=== PATIENT | male | born 1935 | race Caucasian/White ===

== ENCOUNTER 2018-08-12 10:36 | Inpatient (IN) ==
--- NOTE | 2018-07-29 13:35 | PAT Medication Instructions ---
Medication Instructions Date of Service July 29, 2018 Home Medications aspirin [Aspir-81] 81 mg PO QAM atorvastatin 40 mg PO PM calcium carbonate [Calcium 500] 500 mg PO BID finasteride 5 mg PO QAM folic acid 0.4 mg PO BID isosorbide mononitrate 30 mg PO QAM lansoprazole [Prevacid] 30 mg PO QAM metoprolol succinate 25 mg PO QPM multivitamin 1 tab PO QAM DO NOT take the morning of surgery calcium carbonate [Calcium 500] 500 mg PO BID folic acid 0.4 mg PO BID multivitamin 1 tab PO QAM Take morning of surgery With a small sip of water, OTHERWISE NOTHING TO EAT OR DRINK AFTER MIDNIGHT: aspirin [Aspir-81] 81 mg PO QAM finasteride 5 mg PO QAM isosorbide mononitrate 30 mg PO QAM lansoprazole [Prevacid] 30 mg PO QAM Take evening before surgery atorvastatin 40 mg PO PM calcium carbonate [Calcium 500] 500 mg PO BID folic acid 0.4 mg PO BID metoprolol succinate 25 mg PO QPM Other Notes If you have any questions please call us at [phone] or [phone] or [phone] or [phone]
--- NOTE | 2018-07-30 10:29 | Anesthesiology Consultation ---
Date of Service July 30, 2018 Assessment & Plan (1) Encounter for pre-operative examination: Plan: Cardiac clearance 08/08/2018: "He has been evaluated and is considered cleared for proposed procedure at intermediate cardiac risk... Good exercise tolerance, able to perform at least 4 METs without limitations" Chart Review Chart Review: Acceptable Risk for Surgery and Patient seen in Pre Admission Testing Teaching & Discussion Instructed NPO after midnight before surgery, except medications with 15 cc of water. Medication instructions provided according to the PAT guidelines. History Surgery Operation Date: 08/12/18 13:10 Proposed Procedures p Right Total Shoulder Arthroplasty - Chapincito Euceda MD Height/Weight Height: 6 ft 6 in Weight: 96 kg Allergies Allergy/AdvReac Type Severity Reaction Status Date / Time Antihistamines - Alkylamine Allergy Unknown Hives Verified 07/25/18 11:53 Sulfa (Sulfonamide Allergy Unknown Hives Verified 07/25/18 11:52 Antibiotics) Medications Home Medications Medication Instructions Recorded Confirmed Last Taken aspirin [Aspir-81] 81 mg PO QAM 07/25/18 07/25/18 Unknown atorvastatin 40 mg PO PM 07/25/18 07/25/18 Unknown calcium carbonate [Calcium 500] 500 mg PO BID 07/25/18 07/25/18 Unknown finasteride 5 mg PO QAM 07/25/18 07/25/18 Unknown folic acid 0.4 mg PO BID 07/25/18 07/25/18 Unknown isosorbide mononitrate 30 mg PO QAM 07/25/18 07/25/18 Unknown lansoprazole [Prevacid] 30 mg PO QAM 07/25/18 07/25/18 Unknown metoprolol succinate 25 mg PO QPM 07/25/18 07/25/18 Unknown [id number] 1 tab PO QAM 07/25/18 07/25/18 Unknown [Multivitamin 50 Plus] Past Medical History Medical History Anemia HX BPH (benign prostatic hyperplasia) CAD (coronary artery disease) s/p cardiac cath, ASHKAN x 1 to LAD 6-7yrs ago. Rpt cath 2017 showed patent stent and mild nonobstructive disease otherwise. Duodenal ulcer HX GERD (gastroesophageal reflux disease) Hiatal hernia Hyperlipidemia Hypertension Psoriatic arthritis Past Surgical History Surgical History History of appendectomy History of cardiac cath 1 STENT 6-7 YRS AGO History of total knee replacement R/L Hx of transurethral resection of prostate Past Anesthesia History No Hx of Anesthesia Complications and No Family Hx of Anesthesia Complications History of PONV No Motion Sickness Screening History of Motion Sickness: No Social History Smoking Status: Former smoker Do You Dip or Chew Tobacco: No Smoking End Date: QUIT 50 YRS AGO Hx Alcohol Use: Yes (RARELY) Hx Substance Use: No Exercise / Class Metabolic Activity II 4-5 Yardwork/Stairs/Walk up hill (Very active, gardening, yardwork, stairs daily without limiting CP symptoms) Review of Systems Pt denies any recent chest pain, shortness of breath, palpitations, cough, fever or URI. Physical Exam Vital Signs BP: 132/67 P: 57bpm SPO2: 96% RA T: 97.9 F R: 16 ENMT Mouth: + dentures and + edentulous Thyromental Distance: > or= 3.5 Finger Breadths (3.5) Mallampati Class: II Neck normal visual inspection and + limited neck extension Respiratory Auscultation: lungs clear to auscultation bilaterally Cardiovascular Rate/Rhythm: regular rhythm and + bradycardic Heart Sounds: no murmur Vessels: no carotid bruit Extremities: no edema Testing Electrocardiogram Date: 07/30/18 Findings: + SB @ (53) Right ventricular conduction delay suggested. 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 There are healed right-sided rib fractures. Cardiomegaly and emphysema with no active disease in the chest. Echocardiogram Date: 08/13/17 EF: 55-60% Normal left ventricular size. The left ventricle is normal systolic function. Mildly dilated right ventricle. The right ventricle has grossly normal function. Thickened and nonrestricted aortic valve with mild regurgitation. GEOVANNA is 2.6 cm and the mean gradient is 5 mmHg. Thickened mitral valve with mild regurgitation. Mild TR and OR. The right atrium is mildly enlarged. Eustachian valve seen in right atrium mildly dilated aortic root. 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 There is an impaired relaxation pattern consistent with diastolic dysfunction grade 1. Stress Test Date: 05/11/15 Type: nuclear The SPECT perfusion images are considered to be within normal limits. Negative EKG response. No exercise associated chest discomfort. LVEF 59%. Cardiac Catheterization Date: 05/28/17 Indication: chest pain. Normal left ventriculogram, patent LAD stents. Moderate mid left circumflex stenosis. Plan: Continue medical management and aggressive risk factor modification. Laboratory Results 07/30/18 10:45 07/30/18 10:45 Blood Type O Positive 07/30/18 10:45 Antibody Screen NEGATIVE 07/30/18 10:45 PT 10.9 Seconds (9.0-12.0) 07/30/18 10:45 INR 1.1 (0.9-1.1) 07/30/18 10:45 APTT 26.6 Seconds (21.0-31.0) 07/30/18 10:45 Hemoglobin A1c 5.9 % (4.5-5.6) H 07/30/18 10:45 Urine Color Dark Yellow 07/30/18 10:45 Urine Appearance Clear (Clear) 07/30/18 10:45 Urine pH 5.0 (4.5-7.5) 07/30/18 10:45 Ur Specific [place] 1.021 (1.000-1.030) 07/30/18 10:45 Urine Protein Negative (Negative) 07/30/18 10:45 Urine Glucose (UA) Negative (Negative) 07/30/18 10:45 Urine Ketones Negative (Negative) 07/30/18 10:45 Urine Nitrite Negative (Negative) 07/30/18 10:45 Ur Leukocyte Esterase Negative (Negative) 07/30/18 10:45
--- NOTE | 2018-07-30 11:57 | XRay Report ---
TWO VIEW CHEST CLINICAL HISTORY: Preoperative examination. FINDINGS: PA and lateral chest radiographs are obtained. No prior studies are available for compariso n at the time of dictation. The heart is mildly enlarged and there is atherosclerotic calcification of the thoracic aorta. The pulmonary vasculature is noncongested. Emphysematous change is noted. Nons pecific interstitial thickening is likely chronic. No airspace consolidation or pleural effusion is i dentified. There is no pneumothorax. The skeletal structures are osteopenic. 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 There are healed right-sided rib fractures. Arthritic change is noted in the shoulders. IMPRESSION: Cardiomegaly and emphysema with no active disease in the chest. Electronically signed by: Darius Mora M.D. 07/30/2018 11:55 AM
[2018-07-30 12:13] LABS: Basophils # (auto) 0.01 K/uL (0-0.2); Basophils % (auto) 0.3 %; Eosinophils # (auto) 0.14 K/uL (0-0.5); Eosinophils % (auto) 3.7 %; Hematocrit (blood only) 43.4 % (42-52); Hemoglobin 14.3 g/dL (14.0-18.0); Immature Granulocytes # (auto) 0.01 K/uL (0.00-0.02); Immature Granulocytes % (auto) 0.3 %; Lymphocytes # (auto) 1.23 K/uL (1.2-3.4); Lymphocytes % (auto) 32.4 %; Mean Corpuscular Hgb Conc 32.9 g/dL (32-36); Mean Corpuscular Volume 97.5 fL (80-100); Mean Platelet Volume 10.4 fL (7.4-10.4); Monocytes # (auto) 0.59 K/uL (0.11-0.59); Monocytes % (auto) 15.5 %; Neutrophils # (auto) 1.82 K/uL (1.4-6.5); Neutrophils % (auto) 47.8 %; Platelet Count 130 K/uL (130-400); RDW Coefficient of Variation 14.6 % (11.5-14.5); RDW Standard Deviation 51.7 fL (36.4-46.3); Red Blood Count 4.45 M/uL (4.7-6.1)
[2018-07-30 12:16] LABS: Appearance Urine Clear (Clear); Bilirubin Urine Negative (Negative); Color Urine Dark Yellow; Glucose Urine UA Negative (Negative); Ketones Urine Negative (Negative); Leukocyte Esterase Urine Negative (Negative); Nitrite Urine Negative (Negative); Protein Urine Negative (Negative); Specific Gravity Urine 1.021 (1.000-1.030); Urobilinogen Urine Negative (Negative)
[2018-07-30 12:20] LABS: INR 1.1 (0.9-1.1); Partial Thromboplastin Time 26.6 Seconds (21.0-31.0); Prothrombin Time 10.9 Seconds (9.0-12.0)
[2018-07-30 12:22] LABS: Albumin Level 3.2 gm/dl (3.4-5.0); BUN Creatinine Ratio 19.5 (10-20); Creatinine Clr Calc Pharmacy 88.1 ml/min; Est GFR (African American) 94.7; Est GFR (Non-African American) 81.7; Potassium 4.4 mmol/L (3.5-5.1)
[2018-07-30 12:42] LABS: Estimated Average Glucose 123 mg/dl
--- NOTE | 2018-08-11 20:44 | History and Physical Report ---
DATE OF ADMISSION: 08/12/2018 CHIEF COMPLAINT: Chronic right shoulder pain. HISTORY OF PRESENT ILLNESS: This is an 83-year-old male patient of Dr. Euceda'trudy complaining of chronic right shoulder pain, longstanding, now progressively getting worse. The patient has failed conservative treatment including intraarticular injections, arthroscopic surgery and physical therapy. The patient has been diagnosed with end-stage osteoarthritis per clinical and radiographic exam and wishes to proceed with a right total shoulder arthroplasty. PAST MEDICAL HISTORY: Hypercholesterolemia, rheumatoid arthritis, acid reflux, BPH, basal cell carcinoma. He has a history of stent placement with coronary artery disease. SOCIAL HISTORY: He was a lifelong smoker, quit in 1967. No alcohol. PAST SURGICAL HISTORY: Prostate, appendectomy, both knees replaced, and shoulder surgery. FAMILY HISTORY: Noncontributory. REVIEW OF SYSTEMS: Chronic right shoulder pain. Otherwise, denies any shortness of breath, chest pain, nausea, vomiting or other joint complaints. MEDICATIONS: Amoxicillin 250 mg every 8 hours, aspirin 81 mg daily, atorvastatin 40 mg daily, finasteride 5 mg daily, folic acid 1 mg daily, [place] as needed, ipratropium-albuterol 0.5/3 mg nebulizer 4 times daily, isosorbide dinitrate 30 mg daily, methotrexate 2.5 mg weekly as needed, metoprolol 25 mg daily, Prevacid 30 mg daily. ALLERGIES: SULFA, ANTIHISTAMINES, WHICH BOTH CAUSE HIVES. PHYSICAL EXAMINATION: GENERAL: Well-developed, well-nourished 83-year-old male in no acute distress. He is alert and oriented x3 and pleasant. HEENT: Normocephalic, atraumatic. Extraocular motions are intact. Pupils are equal and reactive to light. HEART: Regular rate and rhythm, no murmurs. LUNGS: Clear. ABDOMEN: Soft, nontender, bowel sounds present. EXTREMITIES: Right shoulder active range of motion of 0-100, passively to 120 with crepitation. He has 4/5 strength with pain. NEUROLOGIC: Neurovascularly he is intact in his right upper extremity. DIAGNOSES: Right shoulder end-stage osteoarthritis, hypercholesterolemia, coronary artery disease status post stent placement 5 years ago, rheumatoid arthritis, acid reflux, history of basal cell carcinoma, benign prostatic hypertrophy. PLAN: The patient was advised of his diagnosis. Indications, risks, benefits, postop course have all been reviewed. The patient wished to proceed with a right total shoulder arthroplasty. Necessary consent forms, preoperative testing and clearances will be obtained.
--- NOTE | 2018-08-12 10:13 | History & Physical Bridge Note ---
Date of Service August 12, 2018 History & Physical Bridge Note I have examined the patient, reviewed the History & Physical and in the interval since the performance of the History & Physical I have noted the following changes of clinical significance: no changes noted
[~2018-08-12 10:36] MED LIST: ACETAMINOPHEN 500 MG TAB PO SCH; CEFAZOLIN 2000MG 2,000 MG/15 ML SYR IV SCH; CeleBREX 200 MG CAP PO SCH; DEXAMETHASONE SOD INJ 4 MG/ML VIAL ONE; FAMOTIDINE 20 MG TAB PO SCH; GABAPENTIN 300 MG PO SCH; GLYCOPYRROLATE 0.2 MG/ML VIAL ONE; LARYING-O-JET KIT (LTA) ONE; LIDOCAINE HCL 2% 2 ML VIAL/AMP(20MG/ML) INFIL ONE; LR 15ML/HR IV SCH; METOCLOPRAMIDE HCL 10 MG TABLET PO SCH; MIDAZOLAM HCL 1 MG/ML 2ML VIAL ONE; NEOSTIGMINE METHYLSULFATE 5 MG/5 ML SYR ONE; ONDANSETRON INJ 2 MG/ML 2 ML VIAL ONE; PHENYLEPHRINE 100MCG/ML 5ML SYR ONE; PROPOFOL IV EMULSION 10 MG/ML 20 ML VIAL IV ONE; ROCURONIUM BROMIDE 10 MG/ML 5 ML VIAL ONE; ROPIVACAINE 0.5% 5 MG/ML 30 ML VIAL ONE; dexAMETHasone 4 MG TAB PO SCH; ePHEDrine sulfate 50 MG/ML SYR ONE; fentaNYL citrate 100 MCG/2 ML VIAL ONE
[2018-08-12] MEDS ORDERED: BACITRACIN INJ 50,000 UNIT VIAL ONE (11:29)
[2018-08-12] MEDS ORDERED: ORTHO JOINT ANESTHETIC ONE (11:30)
[2018-08-12] MEDS ORDERED: EpINEphrine HCL INJ 1 MG/ML 1ML SYRINGE ONE (12:08)
[2018-08-12] MEDS ORDERED: EPINEPHrine HCL INJ 1 MG/ML 30ML ONE (12:57)
[2018-08-12] MEDS ORDERED: ePHEDrine sulfate 50 MG/ML AMP IV PRN (13:36)
[2018-08-12] MEDS ORDERED: ATROPINE SULFATE 0.1 MG/ML 10ML SYR IV PRN (13:36)
[2018-08-12] MEDS ORDERED: ePHEDrine sulfate 50 MG/ML SYR ONE (14:36)
--- NOTE | 2018-08-12 14:44 | Post Operative Brief Note ---
Immediate Post Op Note v1 Date of Surgery August 12, 2018 Pre & Post Diagnosis Operation Date: 08/12/18 13:10 Pre-Op Diagnosis: Right Shoulder Osteoarthritis Post-Op Diagnosis: Right Shoulder Osteoarthritis, chronic biceps tendinopathy Procedure Operation Date: 08/12/18 13:10 Actual Procedures p Right Total Shoulder Arthroplasty biceps tenodesis- Chapinc[place] Euceda MD Surgeon Chapincito Euceda MD Professor Of Psychology Matt RG Estimated Blood Loss 150 Findings Consistent with Post-Op Diagnosis End-stage glenohumeral osteoarthritis widened chronic biceps tendinopathy Specimens Humeral head Drains Hemovac Drain Anesthesia Type General Regional Complications none Disposition Accompanied Patient To Recovery: No Disposition: Recovery Room Overlapping Procedure I was present for: the critical portions of procedure.
--- NOTE | 2018-08-12 16:08 | Operative Report ---
Post Operative Report Pre & Post Diagnosis Operation Date: 08/12/18 13:10 Pre-Op Diagnosis: Right Shoulder Osteoarthritis, rotator cuff tear Post-Op Diagnosis: Right Shoulder Osteoarthritis, repairable interstitial rotator cuff tear, chronic intra-articular biceps tendinopathy Procedure Operation Date: 08/12/18 13:10 Actual Procedures p Right Total Shoulder Arthroplasty, rotator cuff repair, biceps tenodesis- Chap[place]ito Euceda MD Surgeon Chapincito Euceda MD Classics Professor Matt RG Estimated Blood Loss 150 Findings Consistent with Post-Op Diagnosis Specimens Humeral head Drains 2 Hemovac Anesthesia Type General Regional Complications none Disposition Accompanied Patient To Recovery: No Disposition: Recovery Room Indications 83-year-old male with end-stage bilateral glenohumeral osteoarthritis failed conservative management. Radiographs demonstrate [id number] glenohumeral joints bilaterally. Description of Procedure The patient was taken to the operating room and anesthetized under a general and regional block anesthesia. A towel roll was placed under the medial border of the scapula of the right shoulder. The patient's head was placed on a foam headrest and protective eyewear was placed and the extremities were well padded. The arm was draped free in order to manipulate the shoulder as necessary. The shoulder exam demonstrated 75 degrees forward elevation 80 degrees abduction 20 degrees external rotation. The shoulder was sterilely prepped and draped in the usual sterile fashion. An anterior deltopectoral approach was performed. A longitudinal incision was made in the interval. The skin was incised sharply and subcutaneous tissues dissected down to the fascia. The cephalic vein was identified and retracted laterally with the deltoid. Any crossing veins were tied off with silk ties and divided. The clavipectoral fascia was divided at the lateral margin of the conjoined tendon and divided up to the level of the coracoacromial ligament which was preserved. The upper 1 cm of the pectoralis was released for inferior exposure. The biceps tendon findings demonstrated intact tendon with tenosynovitis but in the joint there was chronic widening and thickening of the tendon consistent with chronic rotator cuff tendinopathy. The rotator cuff tendon findings demonstrated intact subscapularis intact infraspinatus and teres minor the supraspinatus posterior aspect had a bubblelike appearance with redundant bursal sided rotator cuff tissue consistent with an interstitial type tear with a small opening in the back but was not full-thickness as the interarticular part of the rotator cuff was still intact. The circumflex vessels were identified and tied off with silk ties and divided laterally. The fibers and subscapularis were split longitudinally at the level of the circumflex vessels down to the capsule and then reflected off the inferior capsule using a Kitner elevator. The axillary nerve was identified with a tug test and protected with a blunt Elizabeth retractor. The rotator interval was opened up and extended down to the glenoid. The biceps tendon was identified and tenodesed to the pectoralis tendon with [id number] #2 FiberWire sutures in the proximal biceps was resected. The subscapularis tendon was taken down with a trans-tendinous incision leaving a cuff of tissue for repair on the lesser tuberosity. The incision was carried down to the tendon and the capsule and a #1 Vicryl suture was placed into the free end of the subscapularis tendon. The capsule was subperiosteally dissected off the inferior neck of the humerus exposing the humeral osteophytes which demonstrated inferior posterior inferior lateral and some superior osteophytes. The osteophytes were excised with an artist chisel and a rongeur. The capsular release along the inferior neck of the humerus was completed. The humerus was then retracted posterior to the glenoid with a Fukuda retractor. The remainder of the biceps tendon and labrum was resected. The glenoid findings demonstrated some articular cartilage and a half garcia shape in the anterior aspect of the glenoid otherwise completely exposed bone but no significant posterior wear pattern.. I did an anterior inferior and posterior inferior release with electrocautery on bone and a Mancini elevator with the axillary nerve continuing to be protected with the blunt Hohmann retractor inferiorly. When the releases were completed and the humeral head was exposed with some extension and external rotation and in anatomic head cut was made using the oscillating saw. The humeral head findings demonstrated eburnated bone and humeral head had a large humeral head.. The humeral head was then retracted posterior to the glenoid with Hohmann retractors and Bankart retractor placed anteriorly. A central drill hole was made into the glenoid. The glenoid was sized for a size 52 Affinity Cortiloc component. The Tornier Affinity Cortiloc total shoulder arthroplasty system was used and the 52 glenoid component was chosen. The glenoid was reamed and the central drill widened and the guide for the peg holes was placed in the peg holes were drilled and a trial component was placed with a tight fit. The trial was removed and the glenoid was irrigated with pulsatile lavage antibiotic solution and the drill holes were dried and packed with epinephrine-soaked tampons for hemostasis. The [place] G cement was vacuum mixed. The final component was cemented into position and held in position with pressure until the cement cured. Attention was taken to the humeral preparation. A centralizing awl was used in the canal followed by broaches up to a size 6. This had the appropriate fit and fill. A size 54 x 23 millimeter high offset ascend humeral head was then used. It was rotated into appropriate position. A trial reduction was performed and the shoulder was stable. The trial was removed and the humerus and canal were irrigated with antibiotic solution with bacitracin. 3 drill holes were made into the hard bone in the bicipital groove lateral to the lesser tuberosity and 3 #5 FiberWire transosseous sutures were placed for repair of the subscapularis. After further irrigation of the canal and the final components were assembled. The final components were the ascend humeral head 54 x 23 high offset with a 6A standard humeral stem. The implant was then impacted into the humerus with a tight press-fit. The humerus was reduced to the glenoid and stability verified. The subscapularis was repaired with the #5 FiberWire sutures in a Fox-Yung suture technique and lateral row fixation with [id number] #2 FiberWire in the soft tissue. The rotator interval was closed and maximal external rotation. Similar redundant bursal interstitial tear of the supraspinatus was debrided enough to lie this tissue flat and repair of the supraspinatus and infraspinatus with [id number] #2 FiberWire sutures x2. The repair was secure and there is no impingement under the CA ligament. The pectoralis was then closed with [id number] #2 FiberWire suture. 2 Hemovac drains were placed. The deltopectoral interval was closed with [id number] #1 Vicryl sutures. The subcutaneous tissues were closed with interrupted 2-0 Vicryl and the skin was closed with raúl and a sterile dressing was applied. The patient tolerated the procedure well. Matt RG my physician assistant finance director, assisted in soft tissue retraction instrument management suture management and assisted in the subcutaneous and skin closure and will participate in the postoperative care the patient. I attest to the content of the Intraoperative Record and any orders documented therein. Any exceptions are noted below.
--- NOTE | 2018-08-12 16:33 | Anesthesiology Progress Note ---
Date of Service August 12, 2018 Anesthesia Post Procedure Vital Signs Vital Signs: Temp Pulse Pulse Resp BP Pulse Ox 08/12/18 16:10 57 L 22 127/62 98 08/12/18 16:00 59 L 22 127/65 97 08/12/18 15:54 36.4 C L 61 21 137/67 95 08/12/18 11:14 37.1 C 60 20 152/80 H 95 Notes Mental Status: alert / awake / arousable and participated in evaluation Patient Amnestic to Procedure: Yes Nausea / Vomiting: adequately controlled Pain: adequately controlled Airway Patency, RR, SpO2: stable & adequate BP & HR: stable & adequate Hydration State: stable & adequate Anesthetic Complications: no major complications apparent
--- NOTE | 2018-08-12 16:52 | XRay Report ---
XR shoulder RT min 2V routine CLINICAL HISTORY: Post shoulder surgery COMPARISON: None FINDINGS: Incidental note is made of old right rib fractures. Alignment of the right shoulder arthro plasty is anatomic. There is no fracture or unexpected radiopaque foreign body. There are drains and skin raúl. IMPRESSION: Expected findings following right shoulder arthroplasty. Electronically signed by: Raymond Cyr M.D. 08/12/2018 4:51 PM
[2018-08-12] MEDS ORDERED: BISACODYL 10 MG SUPP PR PRN (17:02)
[2018-08-12] MEDS ORDERED: METOCLOPRAMIDE HCL INJ 5 MG/ML 2 ML VIAL IV PRN (17:02)
[2018-08-12] MEDS ORDERED: NALOXONE HCL 0.4 MG/1 ML VIAL/CARP IV PRN (17:02)
[2018-08-12] MEDS ORDERED: MAGNESIUM HYDROXIDE SUSP 30 ML UDC PO PRN (17:02)
[2018-08-12] MEDS ORDERED: HYDROmorphone INJ 0.5 MG/0.5 ML SYR IV PRN (17:02)
[2018-08-12] MEDS ORDERED: OXYCODONE HCL IR 5 MG TAB (IMMEDIATE RELEASE) PO PRN (17:02)
[2018-08-12] MEDS ORDERED: ONDANSETRON INJ 2 MG/ML 2 ML VIAL IV PRN (17:02)
--- NOTE | 2018-08-12 18:09 | Consultation ---
Date of Consultation August 12, 2018 Assessment & Plan (1) S/P shoulder surgery: -Pain management, bowel regimen, DVT prophylaxis per primary team -PT/OT (2) CAD (coronary artery disease): -Continue aspirin 81 mg daily, Imdur 30 mg p.o. QAM, metoprolol succinate 25 mg QPM, atorvastatin 40 mg daily -S/P1 ASHKAN to the LAD 6-7 years ago (3) HTN (hypertension): -Continue antihypertensives as above (4) HLD (hyperlipidemia): -Continue statin therapy (5) Psoriatic arthritis: Stable (6) H/O heart artery stent: -As above (7) Duodenal ulcer: -Resolved, continue lansoprazole 30 mg QAM (8) BPH (benign prostatic hyperplasia): -Continue finasteride 5 mg QAM (9) DVT prophylaxis: -Ambulatory, SCDs, teds Thank you for involving the medical team in the care of Mr. Cleaning, at this time medicine will sign off. Please do not hesitate to call with questions or concerns. Supervising Physician Co-Signing Physician Notes Attending note: patient seen and examined with Vero Yun PA-C. I agree with her HPI, history, exam, ROS and A/P. - s/p right shoulder surgery: pain control per ortho, d/w patient that pain likely worse tomorrow after nerve block wears off discussed ISB use for deep breathing, to get off of oxygen - h/o CAD: no chest pain, continue home medications will check labs in the AM, if labs and vitals stable then medicine will sign off , call for any new issues History of Present Illness Reason for Consultation: Medical management Requesting Physician: Dr. Euceda Attending Physician: Chapincito Euceda MD History of Present Illness This is an 83-year-old male with PMHx of CAD, as/P cardiac cath, ASHKAN x1 to LAD 6 -7 years ago, cath showed patent stent and mild nonobstructive disease, HTN, HLD , hiatal hernia, duodenal ulcer, psoriatic arthritis, BPH, who presented for elective right shoulder/rotator cuff repair by Dr. Ocasio on 08/12/18. Patient is doing well. Patient reports pain is well controlled. Tolerating diet without any difficulty. No BM or urination since surgery. Allergies Allergy/AdvReac Type Severity Reaction Status Date / Time chlorhexidine Allergy Intermediate Redness of Verified 08/12/18 11:18 Skin Antihistamines - Alkylamine Allergy Unknown Hives Verified 08/12/18 11:18 Sulfa (Sulfonamide Allergy Unknown Hives Verified 08/12/18 11:18 Antibiotics) Home Medications Home Medications Medication Instructions Recorded Confirmed Type aspirin [Aspir-81] 81 mg PO QAM 07/25/18 08/12/18 History atorvastatin 40 mg PO DAILY 07/25/18 08/12/18 History finasteride 5 mg PO QAM 07/25/18 08/12/18 History folic acid 0.4 mg PO BID 07/25/18 08/12/18 History isosorbide mononitrate 30 mg PO QAM 07/25/18 08/12/18 History lansoprazole [Prevacid] 30 mg PO QAM 07/25/18 08/12/18 History metoprolol succinate 25 mg PO QPM 07/25/18 08/12/18 History wtpqnyfqtafh-jklmqizx-kxwuag 1 tab PO QAM 07/25/18 08/12/18 History [Multivitamin 50 Plus] Citrucel 1 tsp PO TIDM 08/12/18 08/12/18 History CoQ-10 1 cap PO DAILY 08/12/18 08/12/18 History Patient History Medical History BPH (benign prostatic hyperplasia) Duodenal ulcer Psoriatic arthritis HLD (hyperlipidemia) HTN (hypertension) CAD (coronary artery disease) Anemia HX BPH (benign prostatic hyperplasia) CAD (coronary artery disease) s/p cardiac cath, ASHKAN x 1 to LAD 6-7yrs ago. Rpt cath 2016 showed patent stent and mild nonobstructive disease otherwise. Duodenal ulcer HX GERD (gastroesophageal reflux disease) Hiatal hernia Hyperlipidemia Hypertension Psoriatic arthritis Surgical History S/P shoulder surgery H/O heart artery stent History of appendectomy History of cardiac cath 1 STENT 6-7 YRS AGO History of total knee replacement R/L Hx of transurethral resection of prostate Social History Current Living Situation: Spouse Other Information That Helps Us Care for You: No Feels Safe at Home: Yes Safety Concerns: Feels Safe At This Time Smoking Status: Former smoker Do You Dip or Chew Tobacco: No Smoking End Date: QUIT 50 YRS AGO Hx Alcohol Use: Yes (RARELY) Hx Substance Use: No Beliefs That Will Affect Care: None Preferred Language: Japanese Communication Ability: Effective Assembling Inspector Required: No Review of Systems Constitutional: no fever, no chills, no sweats and no fatigue Eyes: no diplopia and no worsening vision Ear, Nose, Mouth, Throat: no dizziness, no nasal discharge, no facial pain and no sore throat Respiratory: no cough, no dyspnea and no wheezing Cardiovascular: no chest pain, no palpitations, no lightheadedness and no syncope Gastrointestinal: no nausea, no vomiting and no constipation Genitourinary (Male): no dysuria, no urinary frequency, no urinary hesitancy and no hematuria Musculoskeletal: no back pain, no joint pain, no swelling and no muscle weakness Integumentary: no rash, no lesions and no wounds Neurologic: no gait abnormality, no falls, no numbness, no dizziness and no syncope Psychiatric: no depression and no anxiety Endocrine: no fatigue Physical Exam 2 Vital Signs (Past 24 Hours): Last Vital Signs Temp 36.5 C 08/12/18 17:51 Pulse 65 08/12/18 17:51 Resp 18 08/12/18 17:51 BP 151/74 H 08/12/18 17:51 Pulse Ox 97 08/12/18 17:51 Physical Exam: General: awake, alert, no apparent distress Head: Normocephalic, atraumatic ENT: PERRL, EOMI, no pharyngeal exudate, mucous membranes moist Chest: Clear to auscultation, on room air, no adventitious breath sounds Cardiac: Regular rate and rhythm, no murmur, no JVD, normal peripheral pulses, good capillary refill Abdominal: NABS x 4 quadrants, soft, nontender to palpation, no rebound, guarding or tenderness Extremities: R shoulder in sling, bandage c/d/i. Otherwise normal inspection, no peripheral edema or erythema, calfs nontender to palpation Psych: Normal mood and affect Neuro: AAO x 3, strength intact bilaterally and related 5/5, no motor deficits, speech is clear, no peripheral sensory deficits
[2018-08-12] MEDS: CEFAZOLIN 2000MG 2,000 MG/15 ML SYR IV SCH (20:34)
[2018-08-12] MEDS: DOCUSATE SODIUM 100 MG CAP PO SCH (20:43)
[2018-08-12] MEDS: FOLIC ACID 400 MCG TAB PO SCH (20:44)
[2018-08-12] MEDS ORDERED: SENNA 8.6 MG TAB PO SCH (21:00)
[2018-08-12] MEDS ORDERED: METOPROLOL SUCC 25MG EXT REL TAB PO SCH (21:00)
[2018-08-12] MEDS: ACETAMINOPHEN 500 MG TAB PO SCH (21:06)
[2018-08-12] MEDS: SODIUM CHLORIDE 0.9% 1000ML 1,000 ML IV SCH (21:59)
[2018-08-13] MEDS: CEFAZOLIN 2000MG 2,000 MG/15 ML SYR IV SCH (05:06)
[2018-08-13] MEDS: ACETAMINOPHEN 500 MG TAB PO SCH ×2 (05:06→13:26)
[2018-08-13] MEDS: SODIUM CHLORIDE 0.9% 1000ML 1,000 ML IV SCH (05:45)
[2018-08-13 06:29] LABS: Hematocrit (blood only) 35.5 % (42-52); Hemoglobin 11.8 g/dL (14.0-18.0); Immature Granulocytes # (auto) 0.01 K/uL (0.00-0.02); Immature Granulocytes % (auto) 0.1 %; Lymphocytes # (auto) 0.82 K/uL (1.2-3.4); Lymphocytes % (auto) 8.8 %; Mean Corpuscular Hgb Conc 33.2 g/dL (32-36); Mean Corpuscular Volume 95.2 fL (80-100); Mean Platelet Volume 10.2 fL (7.4-10.4); Monocytes # (auto) 0.63 K/uL (0.11-0.59); Monocytes % (auto) 6.7 %; Neutrophils # (auto) 7.89 K/uL (1.4-6.5); Neutrophils % (auto) 84.4 %; Platelet Count 111 K/uL (130-400); RDW Coefficient of Variation 14.4 % (11.5-14.5); RDW Standard Deviation 49.6 fL (36.4-46.3); Red Blood Count 3.73 M/uL (4.7-6.1); White Blood Count 9.35 K/uL (4.8-10.8)
[2018-08-13 07:00] LABS: BUN Creatinine Ratio 18.8 (10-20); Calcium 7.2 mg/dl (8.5-10.1); Est GFR (African American) 85.6; Est GFR (Non-African American) 73.8; Potassium 4.1 mmol/L (3.5-5.1)
[2018-08-13] MEDS: FOLIC ACID 400 MCG TAB PO SCH (07:42)
[2018-08-13] MEDS: DOCUSATE SODIUM 100 MG CAP PO SCH (07:42)
--- NOTE | 2018-08-13 07:48 | Orthopedic Progress Note ---
Date of Service August 13, 2018 Assessment & Plan (1) Status post total replacement of right shoulder: PT and OT protocols today. Nonweightbearing on the right upper extremity. DVT prophylaxis with SCDDAKOTA yates. Pain management with hydromorphone, oxycodone, acetaminophen. Patient planning to be discharged home and doing outpatient PT Subjective Postop day 1 status post right total shoulder arthroplasty. Patient is currently awake and alert sitting up in bed. He has no complaints this morning. Pain is controlled. Denies shortness of breath, chest pain, lightheadedness. He states that his block is slowly wearing off and he is getting better strength in his right hand. Latest drainage output from the Hemovac was 50 mL from the previous shift. Physical Exam 2 Vital Signs (Past 24 Hours): Last Vital Signs Temp 36.6 C 08/13/18 06:54 Pulse 65 08/13/18 06:54 Resp 18 08/13/18 06:54 BP 112/67 08/13/18 06:54 Pulse Ox 94 08/13/18 06:54 Physical Exam: Dressings are clean, dry, and intact. Capillary refill is less than 2 seconds. He has good range of motion of his right wrist and fingers. Strength is slightly weaker than the left but has been improving per the patient. He denies decreased sensation.
[2018-08-13] MEDS ORDERED: ASPIRIN 81 MG ECTAB PO SCH (09:00)
[2018-08-13] MEDS ORDERED: PANTOprazole 40 MG TAB PO SCH (09:00)
[2018-08-13] MEDS ORDERED: ISOSORBIDE MONO EXTENDED REL 30 MG TABCR PO SCH (09:00)
[2018-08-13] MEDS ORDERED: FINASTERIDE 5 MG TAB PO SCH (09:00)
[2018-08-13] MEDS ORDERED: ATORVASTATIN 40 MG TAB PO SCH (09:00)
[2018-08-13] MEDS ORDERED: MULTIVITAMIN TAB PO SCH (09:00)
[2018-08-13] MEDS ORDERED: NON-FORMULARY MEDICATION (Coq-10 1 CAP) PO SCH (09:00)
--- NOTE | 2018-08-13 10:05 | Hospitalist Progress Note ---
Date of Service August 13, 2018 Assessment & Plan (1) S/P shoulder surgery: -Pain management, bowel regimen, DVT prophylaxis per primary team -PT/OT at beside -Pt anticipating discharge soon. -Hgb dropped to 11.8 from 14.3. No cardiac sx. (2) CAD (coronary artery disease): -Continue aspirin 81 mg daily, Imdur 30 mg p.o. QAM, metoprolol succinate 25 mg QPM, atorvastatin 40 mg daily -S/P1 ASHKAN to the LAD 6-7 years ago (3) HTN (hypertension): -Continue antihypertensives as above (4) HLD (hyperlipidemia): -Continue statin therapy (5) Psoriatic arthritis: Stable (6) H/O heart artery stent: -As above (7) Duodenal ulcer: -Resolved, continue lansoprazole 30 mg QAM (8) BPH (benign prostatic hyperplasia): -Continue finasteride 5 mg QAM (9) DVT prophylaxis: -Ambulatory, SCDs, teds It was a pleasure to see Mr. Cleaning again this morning. Thank you for involving the medical team in the care of Mr. Cleaning, at this time medicine will sign off. Please do not hesitate to call with questions or concerns. Supervising Physician Co-Signing Physician Notes I personally examined the patient and verified all rose points of history and exam, discussed case, and agree with decision making with Jasbir ROE feeling ok post op hoping to go home soon no new issues or complaints pleased with care alice noted nad breathing unlabored no pallor or icterus cn 2-12 grossly intact gross motor/sensory intact s/p shoulder replacement, medical comorbidities stable - stable for home. Subjective The patient was seen and examined this morning. Pt states doing well today. His pain is well controlled. Pt notes he slept well until approx midnight last night , but feels fairly well rested considering. He has not yet had a BM. Urinating without difficulty. Tolerating a diet well, no nausea. His is at beside. Gastrointestinal: + constipation (last BM 2 days ago) Physical Exam 2 Vital Signs (Past 24 Hours): Last Vital Signs Temp 36.6 C 08/13/18 06:54 Pulse 65 08/13/18 06:54 Resp 18 08/13/18 06:54 BP 112/67 08/13/18 06:54 Pulse Ox 94 08/13/18 06:54 Physical Exam: General: awake, alert, no apparent distress, sitting up in bedside chair Head: Normocephalic, atraumatic ENT: PERRL, EOMI, no pharyngeal exudate, mucous membranes moist Chest: Clear to auscultation, on room air, no adventitious breath sounds Cardiac: Regular rate and rhythm, no murmur, no JVD, normal peripheral pulses, good capillary refill Abdominal: NABS x 4 quadrants, soft, nontender to palpation, no rebound, guarding or tenderness Extremities: + Right shoulder with bandage c/d/i, hemovac drain in place, no peripheral numbess in right fingers, Normal inspection, no peripheral edema or erythema, calfs nontender to palpation Psych: Normal mood and affect Neuro: AAO x 3, strength intact bilaterally and related 5/5, no motor deficits, speech is clear, no peripheral sensory deficits
--- NOTE | 2018-08-14 11:39 | Anesthesiology Progress Note ---
Date of Service August 13, 2018 Anesthesia Post Procedure Vital Signs Vital Signs: Temp Pulse Pulse Pulse Resp BP Pulse Ox 08/13/18 13:49 36.6 C 63 81 70 18 94/57 L 95 Pain Intensity Right Shoulder: Pain Intensity: 3 Notes Mental Status: alert / awake / arousable and participated in evaluation Patient Amnestic to Procedure: Yes Nausea / Vomiting: adequately controlled Pain: adequately controlled Airway Patency, RR, SpO2: stable & adequate BP & HR: stable & adequate Hydration State: stable & adequate Anesthetic Complications: no major complications apparent and Pt Satisfied with anesthetic care
--- NOTE | 2018-08-17 12:29 | Discharge Summary ---
DISCHARGE DIAGNOSES: Degenerative joint disease, right shoulder with repairable interstitial rotator cuff tear and chronic intra-articular biceps tendinopathy. SECONDARY DIAGNOSES: Hypercholesterolemia, rheumatoid arthritis, acid reflux, benign prostatic hypertrophy, basal cell carcinoma, history of cardiac stent placement with coronary artery disease. CONSULTS: Vero Foster PA-C/Rigo Hinds DO COMPLICATIONS: None. PROCEDURES: Right total shoulder arthroplasty with rotator cuff repair, biceps tenodesis by Dr. Euceda on 08/12/2018. BRIEF HISTORY: As dictated in the history and physical. HOSPITAL SUMMARY: The patient was admitted on the above-noted date and had the above-noted surgery performed which he tolerated well. On his first postoperative day, the patient was currently awake and sitting up in the bed. He had no complaints. Pain was controlled. Denied shortness of breath, chest pain or lightheadedness. He stated that his block was slowly wearing off and he was getting better strength in his right hand, that his drainage output from the Hemovac was 50 mL from our previous shift. Vital signs were stable. He was afebrile. Dressings clean, dry and intact. Cap refill was less than 2 seconds. He had good range of motion of his right wrist and fingers. Strength was slightly weaker than the left, but it has been improving per the patient. Denied decreased sensation. He was started on PT and OT protocols and nonweightbearing in the right upper extremity. He was continued on DVT prophylaxis and pain management. He progressed well with his physical therapy and was remaining stable and it was felt that he could be discharged home on 08/13/2018. For further review, please see chart. LABORATORY AND X-RAY DATA: As per chart. DISCHARGE INSTRUCTIONS: The patient was discharged to home in satisfactory condition on 08/13/2018. Diet: Regular. Activity: Nonweightbearing on the right upper extremity. Follow TSA instruction sheets and special care instructions as noted. Follow up with Dr. Euceda in 2 weeks. The patient is to call for appointment if one has not been made for you. DISCHARGE MEDICATIONS: Acetaminophen 1000 mg p.o. q. 8 hours, oxycodone 5 mg p.o. q. 4 hours p.r.n. Resume home meds as listed.
== END 2018-08-13 16:33 | disposition home or self-care (01) | DRG 483 ==
LOC: ASU 10:36 → 3E 16:00

== ENCOUNTER 2020-09-11 10:16 | Observation (INO) ==
--- NOTE | 2020-09-01 10:15 | PAT Medication Instructions ---
Medication Instructions Date of Service September 01, 2020 Home Medications Multivitamin 50 Plus 1 tab PO QAM aspirin [Aspir-81] 81 mg PO QAM atorvastatin 40 mg PO QPM folic acid 0.8 mg PO BID isosorbide mononitrate 30 mg PO QAM lansoprazole [Prevacid] 30 mg PO DAILYBB metoprolol succinate 25 mg PO QPM Citrucel 1 tsp PO TIDM albuterol sulfate 1 inh INHALATION QID PRN coenzyme Q10 [CoQ-10] 100 mg PO QAM methotrexate sodium 12.5 mg PO WK polysaccharide iron complex [Ferrex 150] 150 mg PO QAM ASK your prescriber and surgeon methotrexate sodium 12.5 mg PO WK aspirin [Aspir-81] 81 mg PO QAM STOP taking 2 weeks before surgery (or as soon as possible if surgery is within 2 weeks) coenzyme Q10 [CoQ-10] 100 mg PO QAM DO NOT take the morning of surgery Multivitamin 50 Plus 1 tab PO QAM folic acid 0.8 mg PO BID Citrucel 1 tsp PO TIDM polysaccharide iron complex [Ferrex 150] 150 mg PO QAM Take morning of surgery With a small sip of water, OTHERWISE NOTHING TO EAT OR DRINK AFTER MIDNIGHT: isosorbide mononitrate 30 mg PO QAM lansoprazole [Prevacid] 30 mg PO DAILYBB albuterol sulfate 1 inh INHALATION QID PRN (use if needed; please bring rescue inhaler with you to hospital day of surgery if possible) Take evening before surgery atorvastatin 40 mg PO QPM folic acid 0.8 mg PO BID metoprolol succinate 25 mg PO QPM Citrucel 1 tsp PO TIDM albuterol sulfate 1 inh INHALATION QID PRN (if needed) Other Notes If you have any questions please call us at [phone] or [phone] or [phone] or [phone]
--- NOTE | 2020-09-03 11:12 | Anesthesiology Consultation ---
Date of Service September 03, 2020 Assessment & Plan (1) Encounter for pre-operative examination: - COVID screening: Per assessment on 09/03: Travel screen negative, no known COVID-19 positive contacts or current COVID-19 related symptoms. Patient tata reeder was COVID positive 01/2020 (symptoms at time of severe flu-like symptoms, was hospitalized 1 night at [facility], 1928[facility]1983 > symptoms now resolved). Patient had initial COVID vaccine 08/28 (second scheduled for after surgery > 10/01) Surgeon arranging preop COVID testing (scheduled 09/07; [place]). Awaiting results. - S/P Right TSA: 08/13/18: Grade view 1, MAC#3.0, ETT 8.0 + PNB at [facility] - ASA instructions per surgeon/prescriber Chart Review Chart Review: Acceptable Risk for Surgery (pending most recent cardiology office visit) and Patient seen in Pre Admission Testing Teaching & Discussion Pre-Anesthesia Teaching/Discussion Notes: Instructed NPO after midnight before surgery,except medications with 15 cc of water. Medication instructions provided according to the PAT guidelines. History Surgery Operation Date: 09/11/20 09:20 Proposed Procedures p Left Total Shoulder Arthroplasty - Chapincito Euceda MD Height/Weight Height: 6 ft 5 in Weight: 97.3 kg Allergies Allergy/AdvReac Type Severity Reaction Status Date / Time Antihistamines - Alkylamine Allergy Unknown Hives Verified 09/01/20 08:24 Sulfa (Sulfonamide Allergy Unknown Hives Verified 09/01/20 08:24 Antibiotics) Medications Home Medications Medication Instructions Recorded Confirmed Last Taken Multivitamin 50 Plus 1 tab PO QAM 07/25/18 09/01/20 08/11/18 20:00 aspirin [Aspir-81] 81 mg PO QAM 07/25/18 09/01/20 08/12/18 09:00 atorvastatin 40 mg PO QPM 07/25/18 09/01/20 08/12/18 09:00 folic acid 0.8 mg PO BID 07/25/18 09/01/20 08/11/18 20:00 isosorbide mononitrate 30 mg PO QAM 07/25/18 09/01/20 08/11/18 09:00 lansoprazole [Prevacid] 30 mg PO DAILYBB 07/25/18 09/01/20 08/12/18 09:00 metoprolol succinate 25 mg PO QPM 07/25/18 09/01/20 08/11/18 23:00 Citrucel 1 tsp PO TIDM 08/12/18 09/01/20 08/11/18 20:00 albuterol sulfate 1 inh INHALATION QID PRN 09/01/20 09/01/20 Unknown coenzyme Q10 [CoQ-10] 100 mg PO QAM 09/01/20 09/01/20 Unknown methotrexate sodium 12.5 mg PO WK 09/01/20 09/01/20 Unknown polysaccharide iron complex 150 mg PO QAM 09/01/20 09/01/20 Unknown [Ferrex 150] Past Medical History Medical History Anemia hx BCC (basal cell carcinoma) BPH (benign prostatic hyperplasia) CAD (coronary artery disease) s/p cardiac cath, ASHKAN x 1 to LAD (2014). Most recent cath 2016 showed patent stent and mild non-obstructive CAD Duodenal ulcer hx GERD (gastroesophageal reflux disease) Hiatal hernia History of COVID-01/2020 > symptoms at time of flu-like symptoms (severe), was hospitalized 1 night at [facility], [facility] > symptoms now resolved Hyperlipidemia Hypertension Psoriatic arthritis on MTX Exercise / Class Metabolic Activity III < 4 Walking/Shop/Light housework Past Family History Family History Other No family history of adverse response to anesthesia Past Surgical History Surgical History History of appendectomy History of cardiac cath 2014 (ASHKAN x 1 to LAD) 2017> patent stent, mild non-obstructive CAD History of cataract surgery R/L History of open reduction and internal fixation (ORIF) procedure Left Leg History of right shoulder replacement Right TSA: 08/13/18: Grade view 1, MAC#3.0, ETT 8.0 + PNB at [facility] History of tooth extraction All teeth History of total knee replacement R/L Hx of transurethral resection of prostate S/P Mohs surgery for basal cell carcinoma Past Anesthesia History No Hx of Anesthesia Complications and No Family Hx of Anesthesia Complications History of PONV No Hx of PONV and No Hx of Motion Sickness Social History Smoking Status: Former smoker tobacco type: cigarettes Do You Dip or Chew Tobacco: No Smoking End Date: Quit ~1959 Hx Alcohol Use: Yes (RARELY) alcohol intake frequency: holidays/special occasions only Hx Substance Use: No substance use type: does not use Review of Systems Patient denies chest pain, shortness of breath, fever, chills, cough, wheezing, palpitations. Physical Exam Vital Signs VITALS BP 126/63 P 61 TEMP 97.8 SP02 96%RA RESP 16 PHYSICAL Full neck and c-spine range of motion. Full TMJ range of motion. TMD 3.5 finger breaths Mallampati Score 1 Dentition: full dentures upper/lower Lungs: clear throughout to auscultation Cardiac: regular rate and rhythm, no murmurs noted Spine: normal Carotid arteries: negative bruit Extremities: no edema Testing Laboratory Results 09/03/20 12:02 09/03/20 12: PT 10.9 Seconds (9.0-12.0) 09/03/20 12: INR 1.1 (0.9-1.1) 09/03/20 12: APTT 26.2 Seconds (21.0-31.0) 09/03/20 12:02 Hemoglobin A1c 5.9 % (4.5-5.6) H 09/03/20 12:02 Urine Color Yellow 09/03/20 12:02 Urine Appearance Clear (Clear) 09/03/20 12: Urine pH 7.0 (4.5-7.5) 09/03/20 12:02 Ur Specific [place] 1.014 (1.000-1.030) 09/03/20 12:02 Urine Protein Negative (Negative) 09/03/20 12:02 Urine Glucose (UA) Negative (Negative) 09/03/20 12:02 Urine Ketones Negative (Negative) 09/03/20 12:02 Urine Nitrite Negative (Negative) 09/03/20 12:02 Ur Leukocyte Esterase Negative (Negative) 09/03/20 12:02 Blood Type O Positive 09/03/20 12: Antibody Screen NEGATIVE 09/03/20 12:02 Low WBC on preop labs > labs to be forwarded to PCP for continuity of care* Electrocardiogram Date: 09/03/20 Findings: + NSR @ (61) Chest X-Ray Date: 09/03/20 FINDINGS: Cardiac silhouette is upper limits of normal in size. Mediastinal contours are unchanged and within normal limits. There is no pneumothorax, pleural effusion, airspace consolidation or overt pulmonary edema. Bones of the chest appear grossly intact. IMPRESSION: No acute process. Echocardiogram Date: 08/13/17 EF: 55-60% Normal left ventricular size. The left ventricle is normal systolic function. Mildly dilated right ventricle. The right ventricle has grossly normal function. Thickened and nonrestricted aortic valve with mild regurgitation. GEOVANNA is 2.6 cm and the mean gradient is 5 mmHg. Thickened mitral valve with mild regurgitation. Mild TR and MI. The right atrium is mildly enlarged. Eustachian valve seen in right atrium mildly dilated aortic root. 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 There is an impaired relaxation pattern consistent with diastolic dysfunction grade 1. Stress Test Date: 05/11/15 Type: nuclear The SPECT perfusion images are considered to be within normal limits. Negative EKG response. No exercise associated chest discomfort. LVEF 59%. Cardiac Catheterization Date: 05/28/17 Indication: chest pain. Normal left ventriculogram, patent LAD stents. Moderate mid left circumflex stenosis. Plan: Continue medical management and aggressive risk factor modification.
--- NOTE | 2020-09-03 12:33 | XRay Report ---
XR chest Pre-admission PA/Lat CLINICAL HISTORY: Preoperative chest COMPARISON STUDY: 07/30/2018 FINDINGS: The cardiac and mediastinal contours are normal. There is no evidence of focal pulmonary co nsolidation. There is no evidence of failure. No pleural effusions are visualized.[The patient appear s hyperinflated. There is a linear left basilar atelectasis/scarring. There are old right-sided rib f ractures. There are postsurgical changes right humeral arthroplasty. There is ankylosis of the dorsal spine. IMPRESSION: No active disease in the chest. ACT 112: Negative or not required by law. Electronically signed by: Lamont Rapp M.D. 09/03/2020 12:32 PM
[2020-09-03 12:50] LABS: Basophils # (auto) 0.03 K/uL (0-0.2); Basophils % (auto) 0.8 %; Eosinophils # (auto) 0.14 K/uL (0-0.5); Eosinophils % (auto) 3.8 %; Hematocrit (blood only) 41.5 % (42-52); Hemoglobin 13.9 g/dL (14.0-18.0); Immature Granulocytes # (auto) 0.01 K/uL (0.00-0.02); Immature Granulocytes % (auto) 0.3 %; Lymphocytes # (auto) 1.24 K/uL (1.2-3.4); Lymphocytes % (auto) 33.2 %; Mean Corpuscular Hemoglobin 31.2 pg (25-34); Mean Corpuscular Hgb Conc 33.5 g/dL (32-36); Mean Corpuscular Volume 93.3 fL (80-100); Mean Platelet Volume 10.2 fL (7.4-10.4); Monocytes # (auto) 0.36 K/uL (0.11-0.59); Monocytes % (auto) 9.7 %; Neutrophils # (auto) 1.95 K/uL (1.4-6.5); Neutrophils % (auto) 52.2 %; Platelet Count 135 K/uL (130-400); RDW Coefficient of Variation 15.8 % (11.5-14.5); Red Blood Count 4.45 M/uL (4.7-6.1); White Blood Count 3.73 K/uL (4.8-10.8)
[2020-09-03 12:52] LABS: Appearance Urine Clear (Clear); Bilirubin Urine Negative (Negative); Blood Urine Negative (Negative); Color Urine Yellow; Glucose Urine UA Negative (Negative); Ketones Urine Negative (Negative); Leukocyte Esterase Urine Negative (Negative); Nitrite Urine Negative (Negative); Protein Urine Negative (Negative); Specific Gravity Urine 1.014 (1.000-1.030); Urobilinogen Urine Negative (Negative)
[2020-09-03 13:04] LABS: INR 1.1 (0.9-1.1); Partial Thromboplastin Time 26.2 Seconds (21.0-31.0); Prothrombin Time 10.9 Seconds (9.0-12.0)
[2020-09-03 13:07] LABS: Estimated Average Glucose 123 mg/dl; Hemoglobin A1C 5.9 % (4.5-5.6)
[2020-09-03 14:44] LABS: Albumin Level 3.3 gm/dl (3.4-5.0); BUN Creatinine Ratio 19.7 (10-20); Calcium 8.5 mg/dl (8.5-10.1); Creatinine Clr Calc Pharmacy 72.7 ml/min; Est GFR (African American) 83.3; Est GFR (Non-African American) 71.9; Potassium 4.3 mmol/L (3.5-5.1)
--- NOTE | 2020-09-03 21:11 | Electrocardiogram Report ---
Test Reason : Blood Pressure : / mmHG Vent. Rate : 061 BPM Atrial Rate : 061 BPM P-R Int : 156 ms QRS Dur : 106 ms QT Int : 440 ms P-R-T Axes : 090 001 069 degrees QTc Int : 442 ms Normal sinus rhythm Normal ECG When compared with ECG of 30-JUL-2018 10:40, No significant change was found Confirmed by Anmol Arriaza ([id number]) on 09/03/2020 9:11:12 PM Referred By: Chapincito Euceda Confirmed By:Anmol Arriaza
--- NOTE | 2020-09-05 21:18 | History & Physical Report ---
Date of Service September 05, 2020 Assessment & Plan (1) Primary osteoarthritis, left shoulder: Treatment options discussed with patient. He has failed conservative measures and would like to proceed with surgical intervention. Risks, benefits and alternatives to surgery including but not limited to infection, DVT, pain, stiffness, need for revision surgery, damage to blood vessels, damage to nerves, PE, , were discussed with the patient and they wish to proceed. Plan for left total shoulder arthroplasty at [facility] on 09/11/[address] Euceda. All questions answered. He will follow up post operatively. Will plan on outpatient PT post discharge. History of Present Illness Chief Complaint: Left shoulder pain Primary Care Provider: Sharad Rodriguez 85 year old male with PMHx significant for CAD, HTN, high cholesterol, GERD, BPD, BCC who presents with longstanding left shoulder pain. He has significant arthritic change to his left shoulder. Previously has undergone right total shoulder replacement and has done well. He has failed conservative measures and would like to proceed with left shoulder replacement. Patient denies headaches, sweats, fevers, chills, double vision, blurred vision, cough, sore throat, dysphagia, chest pain, sob, wheezing, n/v/d/c, numbness, tingling, fatigue, urinary symptoms, mood disorders. ROS positive for left shoulder pain and stiffness. Allergies Allergy/AdvReac Type Severity Reaction Status Date / Time Antihistamines - Alkylamine Allergy Unknown Hives Verified 09/01/20 08:24 Sulfa (Sulfonamide Allergy Unknown Hives Verified 09/01/20 08:24 Antibiotics) Home Medications Medication Instructions Recorded Confirmed Type Multivitamin 50 Plus 1 tab PO QAM 07/25/18 09/01/20 History aspirin [Aspir-81] 81 mg PO QAM 07/25/18 09/01/20 History atorvastatin 40 mg PO QPM 07/25/18 09/01/20 History folic acid 0.8 mg PO BID 07/25/18 09/01/20 History isosorbide mononitrate 30 mg PO QAM 07/25/18 09/01/20 History lansoprazole [Prevacid] 30 mg PO DAILYBB 07/25/18 09/01/20 History metoprolol succinate 25 mg PO QPM 07/25/18 09/01/20 History Citrucel 1 tsp PO TIDM 08/12/18 09/01/20 History albuterol sulfate 1 inh INHALATION QID PRN 09/01/20 09/01/20 History coenzyme Q10 [CoQ-10] 100 mg PO QAM 09/01/20 09/01/20 History methotrexate sodium 12.5 mg PO WK 09/01/20 09/01/20 History polysaccharide iron complex 150 mg PO QAM 09/01/20 09/01/20 History [Ferrex 150] Past Med/Surg History Medical History Anemia hx BCC (basal cell carcinoma) BPH (benign prostatic hyperplasia) CAD (coronary artery disease) s/p cardiac cath, ASHKAN x 1 to LAD (2014). Most recent cath 2016 showed patent stent and mild non-obstructive CAD Duodenal ulcer hx GERD (gastroesophageal reflux disease) Hiatal hernia History of COVID-19 01/2020 > symptoms at time of flu-like symptoms (severe), was hospitalized 1 night at [facility] > symptoms now resolved Hyperlipidemia Hypertension Psoriatic arthritis on MTX Surgical History History of appendectomy History of cardiac cath 2014 (ASHKAN x 1 to LAD) 2017> patent stent, mild non-obstructive CAD History of cataract surgery R/L History of open reduction and internal fixation (ORIF) procedure Left Leg History of right shoulder replacement Right TSA: 08/13/18: Grade view 1, MAC#3.0, ETT 8.0 + PNB at [facility] History of tooth extraction All teeth History of total knee replacement R/L Hx of transurethral resection of prostate S/P Mohs surgery for basal cell carcinoma Family History Other No family history of adverse response to anesthesia Social History Smoking Status: Former smoker Smoking End Date: Quit ~1959; Second Hand Exposure: No; Do You Dip or Chew Tobacco: No; Tobacco Cessation Education Requested by Patient: No Hx Alcohol Use: Yes (RARELY) Hx Substance Use: No Preferred Language: [place]ill[place] Communication Ability: Effective Optical Instruments Supervisor Required: No Beliefs That Will Affect Care: None Current Living Situation: Spouse Other Information That Helps Us Care for You: No Feels Safe at Home: Yes Safety Concerns: Feels Safe At This Time Assistive Devices: Cane, Denture - Upper, Denture - Lower and Glasses Review of Systems All systems reviewed & are unremarkable except as noted in HPI & below Physical Exam Constitutional: well developed and well nourished; no acute distress Eyes: PERRL, conjunctivae normal, anicteric sclerae ENMT: external ear and nose normal, oropharynx normal Neck: trachea midline, no thyromegaly Respiratory: normal respiratory effort, lungs clear to auscultation Cardiovascular: RRR, no murmur, no edema Musculoskeletal: Left shoulder: Active painful ROM with crepitation. ROM to 30 degrees of ER, FF to 80 degrees, abduction to 60 degrees. Tenderness anterior glenoid and diffusely. Positive impingement signs. Strength-4+/5 ER and abduction, 5/5 IR Skin: no rashes, warm and dry Neurologic: patellar DTR's 2+ bilat, sensation intact Psychiatric: A+Ox3, euthymic affect Results & Data ([facility]) Laboratory Results Lab Results 09/03/20 09/03/20 09/03/20 Range/Units 12:02 12:02 12:02 WBC 3.73 L (4.8-10.8) K/uL RBC 4.45 L (4.7-6.1) M/uL Hgb 13.9 L (14.0-18.0) g/dL Hct 41.5 L (42-52) % MCV 93.3 (80-100) fL MCH 31.2 (25-34) pg MCHC 33.5 (32-36) g/dL RDW Std Deviation 54.0 H (36.4-46.3) fL RDW Coeff of Michaela 15.8 H (11.5-14.5) % Plt Count 135 (130-400) K/uL MPV 10.2 (7.4-10.4) fL Immature Gran % (Auto) 0.3 % Neut % (Auto) 52.2 % Lymph % (Auto) 33.2 % [place] % (Auto) 9.7 % Eos % (Auto) 3.8 % Baso % (Auto) 0.8 % Neut # (Auto) 1.95 (1.4-6.5) K/uL Lymph # (Auto) 1.24 (1.2-3.4) K/uL [place] # (Auto) 0.36 (0.11-0.59) K/uL Eos # (Auto) 0.14 (0-0.5) K/uL Baso # (Auto) 0.03 (0-0.2) K/uL Immature Gran # (Auto) 0.01 (0.00-0.02) K/uL PT 10.9 (9.0-12.0) Seconds INR 1.1 (0.9-1.1) APTT 26.2 (21.0-31.0) Seconds PTT Ratio 1.0 Sodium (136-145) mmol/L Potassium (3.5-5.1) mmol/L Chloride (98-107) mmol/L Carbon Dioxide (21-32) mmol/L Anion Gap (3-11) BUN (7-18) mg/dl Creatinine (0.6-1.4) mg/dl Est Cr Clr Drug Dosing ml/min Est GFR ( Amer) Est GFR (Non-Af Amer) BUN/Creatinine Ratio (10-20) Glucose (70-99) mg/dl Estimat Average Glucose mg/dl Hemoglobin A1c (4.5-5.6) % Calcium (8.5-10.1) mg/dl Albumin (3.4-5.0) gm/dl Urine Color Urine Appearance (Clear) Urine pH (4.5-7.5) Ur Specific Piggott (1.000-1.030) Urine Protein (Negative) Urine Glucose (UA) (Negative) Urine Ketones (Negative) Urine Blood (Negative) Urine Nitrite (Negative) Urine Bilirubin (Negative) Urine Urobilinogen (Negative) Ur Leukocyte Esterase (Negative) Blood Type O Positive Antibody Screen NEGATIVE 09/03/20 09/03/20 09/03/20 Range/Units 12:02 12:02 12:02 WBC (4.8-10.8) K/uL RBC (4.7-6.1) M/uL Hgb (14.0-18.0) g/dL Hct (42-52) % MCV (80-100) fL MCH (25-34) pg MCHC (32-36) g/dL RDW Std Deviation (36.4-46.3) fL RDW Coeff of Michaela (11.5-14.5) % Plt Count (130-400) K/uL MPV (7.4-10.4) fL Immature Gran % (Auto) % Neut % (Auto) % Lymph % (Auto) % [place] % (Auto) % Eos % (Auto) % Baso % (Auto) % Neut # (Auto) (1.4-6.5) K/uL Lymph # (Auto) (1.2-3.4) K/uL [place] # (Auto) (0.11-0.59) K/uL Eos # (Auto) (0-0.5) K/uL Baso # (Auto) (0-0.2) K/uL Immature Gran # (Auto) (0.00-0.02) K/uL PT (9.0-12.0) Seconds INR (0.9-1.1) APTT (21.0-31.0) Seconds PTT Ratio Sodium 143 (136-145) mmol/L Potassium 4.3 (3.5-5.1) mmol/L Chloride 110 H (98-107) mmol/L Carbon Dioxide 27 (21-32) mmol/L Anion Gap 6.0 (3-11) BUN 19 H (7-18) mg/dl Creatinine 0.97 (0.6-1.4) mg/dl Est Cr Clr Drug Dosing 72.7 ml/min Est GFR ( Amer) 83.3 Est GFR (Non-Af Amer) 71.9 BUN/Creatinine Ratio 19.7 (10-20) Glucose 105 H (70-99) mg/dl Estimat Average Glucose 123 mg/dl Hemoglobin A1c 5.9 H (4.5-5.6) % Calcium 8.5 (8.5-10.1) mg/dl Albumin 3.3 L (3.4-5.0) gm/dl Urine Color Yellow Urine Appearance Clear (Clear) Urine pH 7.0 (4.5-7.5) Ur Specific [place] 1.014 (1.000-1.030) Urine Protein Negative (Negative) Urine Glucose (UA) Negative (Negative) Urine Ketones Negative (Negative) Urine Blood Negative (Negative) Urine Nitrite Negative (Negative) Urine Bilirubin Negative (Negative) Urine Urobilinogen Negative (Negative) Ur Leukocyte Esterase Negative (Negative) Blood Type Antibody Screen Diagnostic Findings Left shoulder radiographs demonstrate a type I acromion. He has advanced glenohumeral osteoarthritis with large inferior osteophyte, bone in bone in the glenohumeral point on axillary view.
[~2020-09-11 10:16] MED LIST changes: -CEFAZOLIN 2000MG 2,000 MG/15 ML SYR IV SCH; -CeleBREX 200 MG CAP PO SCH; -DEXAMETHASONE SOD INJ 4 MG/ML VIAL ONE; +GABAPENTIN 300 MG CAP PO SCH; -GABAPENTIN 300 MG PO SCH; -GLYCOPYRROLATE 0.2 MG/ML VIAL ONE; -LARYING-O-JET KIT (LTA) ONE; -LIDOCAINE HCL 2% 2 ML VIAL/AMP(20MG/ML) INFIL ONE; -MIDAZOLAM HCL 1 MG/ML 2ML VIAL ONE; -NEOSTIGMINE METHYLSULFATE 5 MG/5 ML SYR ONE; -ONDANSETRON INJ 2 MG/ML 2 ML VIAL ONE; -PHENYLEPHRINE 100MCG/ML 5ML SYR ONE; -PROPOFOL IV EMULSION 10 MG/ML 20 ML VIAL IV ONE; -ROCURONIUM BROMIDE 10 MG/ML 5 ML VIAL ONE; -ROPIVACAINE 0.5% 5 MG/ML 30 ML VIAL ONE; +ceFAZolin 2000MG 2,000 MG/15 ML SYR IV SCH; -ePHEDrine sulfate 50 MG/ML SYR ONE; -fentaNYL citrate 100 MCG/2 ML VIAL ONE
--- NOTE | 2020-09-11 10:32 | History & Physical Bridge Note ---
Date of Service September 11, 2020 History & Physical Bridge Note I have examined the patient, reviewed the History & Physical and in the interval since the performance of the History & Physical I have noted the following changes of clinical significance: no changes noted
[2020-09-11] MEDS ORDERED: ONDANSETRON INJ 2 MG/ML 2 ML VIAL ONE (11:32)
[2020-09-11] MEDS ORDERED: LIDOCAINE HCL 2% 2 ML VIAL/AMP(20MG/ML) INFIL ONE (11:32)
[2020-09-11] MEDS ORDERED: PROPOFOL IV EMULSION 10 MG/ML 20 ML VIAL IV ONE (11:32)
[2020-09-11] MEDS ORDERED: ROCURONIUM BROMIDE 10 MG/ML 5 ML VIAL IV ONE ×2 (11:32→14:40)
[2020-09-11] MEDS ORDERED: fentaNYL citrate 100 MCG/2 ML VIAL ONE ×2 (11:33→15:16)
[2020-09-11] MEDS ORDERED: MIDAZOLAM HCL 1 MG/ML 2ML VIAL ONE (11:33)
[2020-09-11] MEDS ORDERED: ePHEDrine sulfate 50 MG/ML AMP IV PRN (11:43)
[2020-09-11] MEDS ORDERED: ATROPINE SULFATE 0.1 MG/ML 10ML SYR IV PRN (11:43)
[2020-09-11] MEDS ORDERED: ONDANSETRON INJ 2 MG/ML 2 ML VIAL IV PRN ×2 (11:43→16:43)
[2020-09-11] MEDS ORDERED: fentaNYL citrate 100 MCG/2 ML VIAL IV PRN (11:43)
[2020-09-11] MEDS ORDERED: BACITRACIN INJ 50,000 UNIT VIAL ONE (12:37)
[2020-09-11] MEDS ORDERED: EpINEphrine HCL INJ 1 MG/ML 1ML SYRINGE ONE (12:58)
[2020-09-11] MEDS ORDERED: PHENYLEPHRINE 100MCG/ML 5ML SYR ONE (13:11)
[2020-09-11] MEDS ORDERED: GLYCOPYRROLATE 0.2 MG/ML VIAL ONE (15:15)
[2020-09-11] MEDS ORDERED: NEOSTIGMINE METHYLSULFATE 5 MG/5 ML SYR ONE (15:15)
--- NOTE | 2020-09-11 15:45 | Post Operative Brief Note ---
Immediate Post Op Note v1 Date of Surgery September 11, 2020 Pre & Post Diagnosis Operation Date: 09/11/20 11:40 Pre-Op Diagnosis: Left Shoulder end-stage glenohumeral osteoarthritis Post-Op Diagnosis: Left Shoulder end-stage glenohumeral osteoarthritis ,biceps tendinopathy with biceps tenosynovitis I identified the patient and participated in the time-out.: Yes Procedure Operation Date: 09/11/20 11:40 Actual Procedures p Left Total Shoulder Arthroplasty and Biceps Tenodesis(Left) - Chapincito Euceda MD Surgeon Chapincito Euceda MD Apartment Rental Agent Oliver RG Estimated Blood Loss 100 Findings Consistent with Post-Op Diagnosis Specimens Humeral head Drains Hemovac Drain Anesthesia Type General Regional Complications none Disposition Accompanied Patient To Recovery: No Disposition: Recovery Room Overlapping Procedure I was immediately available: during the entire case.
--- NOTE | 2020-09-11 15:53 | Operative Report ---
Post Operative Report Pre & Post Diagnosis Operation Date: 09/11/20 11:40 Pre-Op Diagnosis: Left Shoulder end-stage glenohumeral osteoarthritis Post-Op Diagnosis: Left Shoulder end-stage glenohumeral osteoarthritis, biceps tendinopathy biceps tenosynovitis I identified the patient and participated in the time-out.: Yes Procedure Operation Date: 09/11/20 11:40 Actual Procedures p Left Total Shoulder Arthroplasty and Biceps Tenodesis(Left) - Chapincito Euceda MD Surgeon Chapincito Euceda MD Track Man Oliver RG Estimated Blood Loss 100 Findings Consistent with Post-Op Diagnosis Specimens Humeral head Drains 2 Hemovac Anesthesia Type General Regional Complications none Disposition Accompanied Patient To Recovery: No Disposition: Recovery Room Indications Active 85-year-old male with chronic pain in his left shoulder with progressive stiffness over time and now with [id number] crepitation with radiographic end- stage glenohumeral osteoarthritis with type A wear pattern. Patient has successful total replacement on his right shoulder is very pleased with that function and pain relief and wants to proceed with similar procedure on his left shoulder. Description of Procedure The patient was taken to the operating room and anesthetized under a general and regional block anesthesia. A towel roll was placed under the medial border of the scapula of the left shoulder. The patient's head was placed on a foam headrest and protective eyewear was placed and the extremities were well padded. The arm was draped free in order to manipulate the shoulder as necessary. The shoulder exam demonstrated very stiff shoulder with 60 degrees forward elevation 45 degrees abduction and 20 degrees external rotation with [id number] crepitation. The shoulder was sterilely prepped and draped in the usual sterile fashion. An anterior deltopectoral approach was performed. A longitudinal incision was made in the interval. The skin was incised sharply and subcutaneous tissues dissected down to the fascia. The cephalic vein was identified and retracted laterally with the deltoid. Any crossing veins were tied off with silk ties and divided. The clavipectoral fascia was divided at the lateral margin of the conjoined tendon and divided up to the level of the coracoacromial ligament which was preserved. The upper 1 cm of the pectoralis was released for inferior exposure. The biceps tendon findings demonstrated chronic tenosynovitis throughout the bicipital groove.. The rotator cuff tendon findings demonstrated intact rotator cuff including intact subscapularis tendon.. The circumflex vessels were identified and tied off with silk ties and divided laterally. The fibers and subscapularis were split longitudinally at the level of the circumflex vessels down to the capsule and then reflected off the inferior capsule using a Kitner elevator. The axillary nerve was identified with a tug test and protected with a blunt Elizabeth retractor. The rotator interval was opened up and extended down to the glenoid. The biceps tendon was identified and tenodesed to the pectoralis tendon with [id number] #2 FiberWire sutures in the proximal biceps was resected. The subscapularis tendon was taken down with a trans-tendinous incision leaving a cuff of tissue for repair on the lesser tuberosity. The incision was carried down to the tendon and the capsule and a #1 Vicryl running suture was placed into the free end of the subscapularis tendon. The capsule was subperiosteally dissected off the inferior neck of the humerus exposing the humeral osteophytes which demonstrated large inferior humeral osteophytes extending from lateral to medial. The osteophytes were excised with an artist chisel and a rongeur. The capsular release along the inferior neck of the humerus was completed. The humerus was then retracted posterior to the glenoid with a Fukuda retractor. The remainder of the biceps tendon and labrum was resected. The glenoid findings demonstrated completely eburnated bone with no articular cartilage at all remaining on the glenoid. There were large anterior spurs on the glenoid which were removed with a rongeur.. I did an anterior inferior and posterior inferior release with electrocautery on bone and a Mancini elevator with the axillary nerve continuing to be protected with the blunt Hohmann retractor inferiorly. When the releases were completed and the humeral head was exposed with some extension and external rotation and in anatomic head cut was made using the oscillating saw. The Tornier ascend flex total shoulder arthroplasty was used including the Cortiloc pegged glenoid component. Attention was first taken to preparation of the humeral shaft. A centralizing awl was used followed by broaches up to the appropriate templated size. The trial broach was left in place and a cut protector was placed. The humerus was then retracted posterior to the glenoid using a Bankart retractor anteriorly and blunt Elizabeth and posterior Tornier glenoid retractor. A central drill hole was made into the glenoid. The glenoid was sized for a size large 40 radius Cortiloc pegged component. The glenoid was reamed and the central drill widened and the guide for the 3 peripheral peg holes was placed in the peg holes were drilled and a trial component was placed with a tight fit. The trial was removed and the glenoid was irrigated with pulsatile lavage antibiotic solution and the drill holes were dried and packed with epinephrine-soaked tampons for hemostasis. The Palacos G cement was vacuum mixed. The final component was cemented into position and held in position with pressure until the cement cured. Due to the glenoid retractors and drilling and the significant tightness of the shoulder a tear was created in the cephalic vein which had to be tied off with silk ties to control hemostasis. The humeral head trial size 54 x 23 high offset was then placed. A trial reduction was performed and the shoulder was stable. The trial was removed and the humerus and canal were irrigated with antibiotic solution with bacitracin. 3 drill h oles were made into the hard bone in the bicipital groove lateral to the lesser tuberosity and 3 #5 FiberWire transosseous sutures were placed for repair of the subscapularis. After further irrigation of the canal and the final components were assembled. The final components were the Tornier ascend flex humeral stem size 6 a standard length, a humeral head 54 x 23 mm high offset, the glenoid was the large 40 radius Cortiloc pegged glenoid. The implant was then impacted into the humerus with a tight press-fit. The humerus was reduced to the glenoid and stability verified. The subscapularis was repaired with the #5 FiberWire sutures in a Fox-Yung suture technique and lateral row fixation with [id number] #2 FiberWire in the soft tissue. The rotator interval was closed with [id number] #2 FiberWire sutures in maximal external rotation. The pectoralis was then closed with [id number] #2 FiberWire suture. The sutures were passed through the biceps tendon as well to reinforce the biceps tenodesis. 2 Hemovac drains were placed. The deltopectoral interval was closed with [id number] #1 Vicryl sutures. The subcutaneous tissues were closed with interrupted 2-0 Vicryl and the skin was closed with raúl and a sterile dressing was applied. The patient tolerated the procedure well. Oliver RG my physician sales assistants and salespersons, assisted in soft tissue retraction instrument management suture management and assisted in the subcutaneous and skin closure and will participate in the postoperative care the patient. I attest to the content of the Intraoperative Record and any orders documented therein. Any exceptions are noted below.
--- NOTE | 2020-09-11 16:29 | Anesthesiology Progress Note ---
Date of Service September 11, 2020 Anesthesia Post Procedure Vital Signs Vital Signs: Temp Pulse Pulse Resp BP BP Pulse Ox 09/11/20 16:20 59 L 16 107/57 L 97 09/11/20 16:10 57 L 16 113/61 100 09/11/20 16:01 36.1 C L 74 16 117/66 100 09/11/20 10:46 37 C 63 18 150/84 H 97 Pain Intensity Left Shoulder: Pain Intensity: 0 Transfer of Care Handoff Completed per policy Notes Mental Status: alert / awake / arousable and participated in evaluation Patient Amnestic to Procedure: Yes Nausea / Vomiting: adequately controlled Pain: adequately controlled Airway Patency, RR, SpO2: stable & adequate BP & HR: stable & adequate Hydration State: stable & adequate Anesthetic Complications: no major complications apparent and Pt Satisfied with anesthetic care
--- NOTE | 2020-09-11 16:42 | XRay Report ---
XR shoulder LT min 2V routine CLINICAL HISTORY: Post shoulder surgery COMPARISON STUDY: None. FINDINGS: There is a left total shoulder arthroplasty. The hardware appears intact. No fracture or di slocation. Skin raúl and surgical drains are in place. IMPRESSION: Status post left total shoulder arthroplasty. No evidence for hardware complication. ACT 112: Negative or not required by law. Electronically signed by: Wilberto Pacheco M.D. 09/11/2020 4:41 PM
[2020-09-11] MEDS ORDERED: ALBUTEROL HFA 8 GM INHALER INH PRN (16:43)
[2020-09-11] MEDS ORDERED: MAGNESIUM HYDROXIDE SUSP 30 ML UDC PO PRN (16:43)
[2020-09-11] MEDS ORDERED: oxyCODONE HCL IR 5 MG TAB (IMMEDIATE RELEASE) PO PRN (16:43)
[2020-09-11] MEDS ORDERED: METOCLOPRAMIDE HCL INJ 5 MG/ML 2 ML VIAL IV PRN (16:43)
[2020-09-11] MEDS ORDERED: HYDROmorphone INJ 0.5 MG/0.5 ML SYR IV PRN (16:43)
[2020-09-11] MEDS ORDERED: bisacodyL 10 MG SUPP PR PRN (16:43)
[2020-09-11] MEDS ORDERED: NALOXONE HCL 0.4 MG/1 ML VIAL/CARP IV PRN (16:43)
[2020-09-11] MEDS: SODIUM CHLORIDE 0.9% 1000ML 1,000 ML IV SCH (17:05)
[2020-09-11] MEDS ORDERED: COUGH DROP (SUGAR FREE) LOZ 24 LOZ/1 BOX BUCCAL ONE (19:55)
[2020-09-11] MEDS: FOLIC ACID 400 MCG TAB PO SCH (20:03)
[2020-09-11] MEDS: DOCUSATE SODIUM 100 MG CAP PO SCH (20:03)
[2020-09-11] MEDS ORDERED: METOPROLOL SUCC 25MG EXT REL TAB PO SCH (21:00)
[2020-09-11] MEDS ORDERED: ATORVASTATIN 40 MG TAB PO SCH (21:00)
[2020-09-11] MEDS ORDERED: SENNA 8.6 MG TAB PO SCH (21:00)
--- NOTE | 2020-09-11 21:00 | Hospitalist Consultation ---
Date of Consultation September 11, 2020 Assessment & Plan (1) Primary osteoarthritis, left shoulder: s/p shoulder replacement 09/11 Pain and DVT management per orthopedics (2) CAD (coronary artery disease): Stable symptoms for years Continue aspirin, atorvastatin, metoprolol and ISMN (3) HTN (hypertension): Hold parameters added to ISMN, otherwise continue his usual home meds (4) HLD (hyperlipidemia): Continue atorvastatin (5) Duodenal ulcer: History of such, switch lansoprazole for pantoprazole per hospital formulary (6) BPH (benign prostatic hyperplasia): Noted history of this but patient reports no current symptoms and on no medication for such (7) Psoriatic arthritis: Restart methotrexate per orthopedic recommendations, continue folate supplementation (8) DVT prophylaxis: Deferred to primary orthopedic team Thank you for the consult will review patient in AM with repeat labs History of Present Illness Attending Physician: Chapincito Euceda MD History of Present Illness Otilio Cleaning is an 85 year old male who presents as an elective left shoulder arthroplasty and biceps tendonesis performed today by Dr Euceda. He reports doing well after the operation and has no acute complaints at this time. Significant history of coronary artery disease with mid LAD stent in 2013, normal NUC with LVEF 67%, study WNL. No recent angina on exertion and stable for many years per patient. History of psoriatic arthritis maintained on methotrexate, currently on hold for surgery. Takes daily folate supplementation. Allergies Allergy/AdvReac Type Severity Reaction Status Date / Time Antihistamines - Alkylamine Allergy Unknown Hives Verified 09/11/20 10:39 Sulfa (Sulfonamide Allergy Unknown Hives Verified 09/11/20 10:39 Antibiotics) Home Medications Medication Instructions Recorded Confirmed Type Multivitamin 50 Plus 1 tab PO QAM 07/25/18 09/11/20 History aspirin [Aspir-81] 81 mg PO QAM 07/25/18 09/11/20 History atorvastatin 40 mg PO QPM 07/25/18 09/11/20 History folic acid 0.8 mg PO BID 07/25/18 09/11/20 History isosorbide mononitrate 30 mg PO QAM 07/25/18 09/11/20 History lansoprazole [Prevacid] 30 mg PO DAILYBB 07/25/18 09/11/20 History metoprolol succinate 25 mg PO QPM 07/25/18 09/11/20 History Citrucel 1 tsp PO TIDM 08/12/18 09/11/20 History albuterol sulfate 1 inh INHALATION QID PRN 09/01/20 09/11/20 History coenzyme Q10 [CoQ-10] 100 mg PO QAM 09/01/20 09/11/20 History polysaccharide iron complex 150 mg PO QAM 09/01/20 09/11/20 History [Ferrex 150] acetaminophen 1,000 mg PO Q8 #0 tab 09/12/20 Rx oxycodone 5 - 10 mg PO Q6H PRN #18 tab 09/12/20 Rx oxycodone 5 mg PO Q6H PRN #12 tab 09/12/20 Rx Patient History Medical History Anemia hx BCC (basal cell carcinoma) BPH (benign prostatic hyperplasia) CAD (coronary artery disease) s/p cardiac cath, ASHKAN x 1 to LAD (2014). Most recent cath 2017 showed patent stent and mild non-obstructive CAD Duodenal ulcer hx GERD (gastroesophageal reflux disease) Hiatal hernia History of COVID-19 01/2020 > symptoms at time of flu-like symptoms (severe), was hospitalized 1 night at [facility] > symptoms now resolved Hyperlipidemia Hypertension Psoriatic arthritis on MTX Surgical History History of appendectomy History of cardiac cath 2014 (ASHKAN x 1 to LAD) 2017> patent stent, mild non-obstructive CAD History of cataract surgery R/L History of open reduction and internal fixation (ORIF) procedure Left Leg History of right shoulder replacement Right TSA: 08/13/18: Grade view 1, MAC#3.0, ETT 8.0 + PNB at [facility] History of tooth extraction All teeth History of total knee replacement R/L Hx of transurethral resection of prostate S/P Mohs surgery for basal cell carcinoma Family History Other No family history of adverse response to anesthesia Social History Smoking Status: Former smoker Second Hand Exposure: No; Hx Alcohol Use: Yes (RARELY) Hx Substance Use: No Preferred Language: Khmer Communication Ability: Effective Aircraft Inspector Required: No Beliefs That Will Affect Care: None Current Living Situation: Spouse Feels Safe at Home: Yes Assistive Devices: Cane Review of Systems Review of Systems: All systems reviewed & are unremarkable except as noted in HPI & below Physical Exam Constitutional: well developed and well nourished; no acute distress Respiratory: normal respiratory effort, lungs clear to auscultation Cardiovascular: RRR, no murmur, no edema Gastrointestinal (Abdomen): normal bowel sounds, soft, nontender, no hepatosplenomegaly Skin: no rashes, warm and dry Neurologic: moves all extremities and awake; not confused Results & Data Results & Data ([facility]) Vital Signs (Past 12 Hours) Vital Signs Temp Pulse Pulse Pulse Resp BP BP 09/11/20 19:36 36.5 C 72 18 120/66 09/11/20 18:40 36.3 C L 63 18 135/64 09/11/20 17:40 36.3 C L 71 18 124/63 09/11/20 17:11 69 18 126/62 09/11/20 16:43 36.3 C L 65 16 134/66 09/11/20 16:30 36.5 C 67 16 124/71 09/11/20 16:20 59 L 16 107/57 L 09/11/20 16:10 57 L 16 113/61 09/11/20 16:01 36.1 C L 74 16 117/66 09/11/20 10:46 37 C 63 18 150/84 H Pulse Ox 09/11/20 19:36 97 09/11/20 18:40 96 09/11/20 17:40 94 09/11/20 17:11 93 09/11/20 16:43 94 09/11/20 16:30 95 09/11/20 16:20 97 09/11/20 16:10 100 09/11/20 16:01 100 09/11/20 10:46 97 PG Care Time/CCT Total # of Minutes Spent Total Time Spent with Patient: Total time spent is greater than 50% in coordination of care (as documented) at patient's floor/unit and/or counseling patient: Coding Level of Care Code 66074 Inpt Consult Level 3 Diagnoses Primary osteoarthritis, left shoulder M19.012 CAD (coronary artery disease) I25.10 HTN (hypertension) I10 HLD (hyperlipidemia) E78.5 Duodenal ulcer K26.9 BPH (benign prostatic hyperplasia) N40.0 Psoriatic arthritis L40.50 DVT prophylaxis Z29.9
[2020-09-11] MEDS: ceFAZolin 2000MG 2,000 MG/15 ML SYR IV SCH (23:20)
[2020-09-11] MEDS: ACETAMINOPHEN 500 MG TAB PO SCH (23:20)
[2020-09-12] MEDS: SODIUM CHLORIDE 0.9% 1000ML 1,000 ML IV SCH (03:14)
[2020-09-12] MEDS: ceFAZolin 2000MG 2,000 MG/15 ML SYR IV SCH (05:06)
[2020-09-12] MEDS: ACETAMINOPHEN 500 MG TAB PO SCH (05:07)
[2020-09-12] MEDS: LANSOPRAZOLE 30 MG SOLTAB PO SCH ×2 (05:07→07:01)
[2020-09-12 06:13] LABS: Basophils # (auto) 0.01 K/uL (0-0.2); Basophils % (auto) 0.1 %; Hematocrit (blood only) 34.5 % (42-52); Hemoglobin 11.3 g/dL (14.0-18.0); Immature Granulocytes # (auto) 0.03 K/uL (0.00-0.02); Immature Granulocytes % (auto) 0.4 %; Lymphocytes # (auto) 0.89 K/uL (1.2-3.4); Lymphocytes % (auto) 10.5 %; Mean Corpuscular Hemoglobin 30.9 pg (25-34); Mean Corpuscular Hgb Conc 32.8 g/dL (32-36); Mean Corpuscular Volume 94.3 fL (80-100); Mean Platelet Volume 10.2 fL (7.4-10.4); Monocytes # (auto) 0.94 K/uL (0.11-0.59); Monocytes % (auto) 11.1 %; Neutrophils # (auto) 6.63 K/uL (1.4-6.5); Neutrophils % (auto) 77.9 %; Platelet Count 117 K/uL (130-400); RDW Coefficient of Variation 16.2 % (11.5-14.5); Red Blood Count 3.66 M/uL (4.7-6.1)
[2020-09-12] MEDS ORDERED: PANTOprazole 40 MG TAB PO SCH (06:30)
[2020-09-12 06:37] LABS: BUN Creatinine Ratio 19.8 (10-20); Calcium 7.5 mg/dl (8.5-10.1); Creatinine Clr Calc Pharmacy 75.8 ml/min; Est GFR (African American) 87.7; Est GFR (Non-African American) 75.7; Potassium 4.2 mmol/L (3.5-5.1)
[2020-09-12] MEDS ORDERED: NON-FORMULARY MEDICATION (Multivitamin-Minerals-Lutein [Multivitamin 50 Plus] Tablet) PO SCH (09:00)
[2020-09-12] MEDS ORDERED: MULTIVITAMIN TAB PO SCH (09:00)
[2020-09-12] MEDS ORDERED: ISOSORBIDE MONO EXTENDED REL 30 MG TABCR PO SCH (09:00)
[2020-09-12] MEDS ORDERED: IRON POLYSACCHARIDE COMPLEX 150 MG CAPSULE PO SCH (09:00)
[2020-09-12] MEDS ORDERED: ASPIRIN 81 MG ECTAB PO SCH (09:00)
--- NOTE | 2020-09-12 09:41 | Orthopedic Progress Note ---
Date of Service September 12, 2020 Assessment & Plan (1) Status post replacement of right shoulder joint: Admission and Anticipated Discharge Date Admission Date: 85 yo male stable POD #1 s/p right TSA, wrist drop likely from pre-op block 1. Med management 2. DVT prophylaxis- ASA, SCDs 3. PT/OT 4. D/C planning- home w/ OPPT Subjective Pt resting in chair, pain controlled, denies complaints Physical Exam Physical Exam: Dressing and drain intact, wrist drop noted with decreased wrist/finger extension Results & Data ([facility]) Vital Signs (Past 12 Hours) Vital Signs Temp Pulse Resp BP Pulse Ox 09/12/20 07:27 36.6 C 64 16 110/64 98 09/12/20 03:50 36.6 C 68 18 121/64 95 09/11/20 22:52 36.4 C L 69 18 108/61 96 Laboratory Results 09/12/20 09/12/20 Range/Units 05:35 05:35 WBC 8.50 (4.8-10.8) K/uL RBC 3.66 L (4.7-6.1) M/uL Hgb 11.3 L (14.0-18.0) g/dL Hct 34.5 L (42-52) % MCV 94.3 (80-100) fL MCH 30.9 (25-34) pg MCHC 32.8 (32-36) g/dL RDW Std Deviation 56.0 H (36.4-46.3) fL RDW Coeff of Michaela 16.2 H (11.5-14.5) % Plt Count 117 L (130-400) K/uL MPV 10.2 (7.4-10.4) fL Immature Gran % (Auto) 0.4 % Neut % (Auto) 77.9 % Lymph % (Auto) 10.5 % [place] % (Auto) 11.1 % Eos % (Auto) 0.0 % Baso % (Auto) 0.1 % Neut # (Auto) 6.63 H (1.4-6.5) K/uL Lymph # (Auto) 0.89 L (1.2-3.4) K/uL [place] # (Auto) 0.94 H (0.11-0.59) K/uL Eos # (Auto) 0.00 (0-0.5) K/uL Baso # (Auto) 0.01 (0-0.2) K/uL Immature Gran # (Auto) 0.03 H (0.00-0.02) K/uL Sodium 142 (136-145) mmol/L Potassium 4.2 (3.5-5.1) mmol/L Chloride 110 H (98-107) mmol/L Carbon Dioxide 26 (21-32) mmol/L Anion Gap 6.0 (3-11) BUN 18 (7-18) mg/dl Creatinine 0.93 (0.6-1.4) mg/dl Est Cr Clr Drug Dosing 75.8 ml/min Est GFR ( Amer) 87.7 Est GFR (Non-Af Amer) 75.7 BUN/Creatinine Ratio 19.8 (10-20) Glucose 133 H (70-99) mg/dl Calcium 7.5 L (8.5-10.1) mg/dl
--- NOTE | 2020-09-12 09:47 | Hospitalist Progress Note ---
Date of Service September 12, 2020 Assessment & Plan (1) CAD (coronary artery disease): no chest pain or pressure, vitals stable continue aspirin, Lipitor, Toprol and Imdur (2) Primary osteoarthritis, left shoulder: s/p shoulder replacement, drain intact Hb stable, Cr stable breathing well management per ortho (3) HTN (hypertension): BP stable on Imdur and Toprol (4) HLD (hyperlipidemia): Lipitor (5) Duodenal ulcer: continue PPI (6) DVT prophylaxis: (7) BPH (benign prostatic hyperplasia): (8) Psoriatic arthritis: Admission and Anticipated Discharge Date Admission Date: September 11, 2020 Subjective patient says is pain is well controlled, feels really "good" he is eating and drinking well, breathing comfortably, no chest pain/pressure, no fever he is passing flatus but no BM, making urine labs reviewed, WBC 8k, Hb 11, Na 142, K 4.2, Cr 0.9 Review of Systems Review of Systems: All systems reviewed & are unremarkable except as noted in Subjective Respiratory: no cough and no dyspnea Cardiovascular: no chest pain and no edema Gastrointestinal: no abdominal pain, no nausea, no vomiting, no constipation and no diarrhea/loose stools Musculoskeletal: + joint pain (left shoulder, controlled) Physical Exam Constitutional: WD/WN, vitals as above no acute distress Neck: trachea midline, no thyromegaly Respiratory: normal respiratory effort, lungs clear to auscultation Cardiovascular: RRR, no murmur, no edema Gastrointestinal (Abdomen): normal bowel sounds, soft, nontender, no hepatosplenomegaly Musculoskeletal: Head/Neck/Chest: normocephalic, head atraumatic and neck supple Shoulder: + shoulder abnormal to inspection (left shoulder, incision, surgical drain) Skin: no rashes, warm and dry Neurologic: patellar DTR's 2+ bilat, sensation intact and PERRL, EOMI, accommodation nl, no face palsy, no dysarthria Psychiatric: A+Ox3, euthymic affect Results & Data Results & Data ([facility]) Vital Signs (Past 12 Hours) Vital Signs Temp Pulse Resp BP Pulse Ox 09/12/20 07:27 36.6 C 64 16 110/64 98 09/12/20 03:50 36.6 C 68 18 121/64 95 09/11/20 22:52 36.4 C L 69 18 108/61 96 Laboratory Results Laboratory Results - last 24 hr 09/12/20 09/12/20 05:35 05:35 WBC 8.50 RBC 3.66 L Hgb 11.3 L Hct 34.5 L MCV 94.3 MCH 30.9 MCHC 32.8 RDW Std Deviation 56.0 H RDW Coeff of Michaela 16.2 H Plt Count 117 L MPV 10.2 Immature Gran % (Auto) 0.4 Neut % (Auto) 77.9 Lymph % (Auto) 10.5 [place] % (Auto) 11.1 Eos % (Auto) 0.0 Baso % (Auto) 0.1 Neut # (Auto) 6.63 H Lymph # (Auto) 0.89 L [place] # (Auto) 0.94 H Eos # (Auto) 0.00 Baso # (Auto) 0.01 Immature Gran # (Auto) 0.03 H Sodium 142 Potassium 4.2 Chloride 110 H Carbon Dioxide 26 Anion Gap 6.0 BUN 18 Creatinine 0.93 Est Cr Clr Drug Dosing 75.8 Est GFR ( Amer) 87.7 Est GFR (Non-Af Amer) 75.7 BUN/Creatinine Ratio 19.8 Glucose 133 H Calcium 7.5 L Medications Administered Current Inpatient Medications Acetaminophen (Acetaminophen 500 Mg Tab) 1,000 mg PO Q8 PENDING SALE TO [facility] Stop: 10/11/20 21:59 Last Admin: 09/12/20 05:07 Dose: 1,000 mg Documented by: Albuterol (Albuterol Hfa 8 Gm Inhaler) 1 puffs INH QID PRN PRN Reason: sob Stop: 10/11/20 16:42 Aspirin (Aspirin 81 Mg Ectab) 81 mg PO QAM PENDING SALE TO [facility] Stop: 10/12/20 08:59 Atorvastatin Calcium (Atorvastatin 40 Mg Tab) 40 mg PO QPM JEFF Stop: 10/11/20 20:59 Last Admin: 09/11/20 20:03 Dose: 40 mg Documented by: Bisacodyl (Bisacodyl 10 Mg Supp) 10 mg CA DAILY PRN PRN Reason: Constipation Stop: 10/11/20 16:42 Docusate Sodium (Docusate Sodium 100 Mg Cap) 100 mg PO BID JEFF Stop: 10/11/20 20:59 Last Admin: 09/11/20 20:03 Dose: 100 mg Documented by: Folic Acid (Folic Acid 400 Mcg Tab) 800 mcg PO BID PENDING SALE TO [facility] Stop: 10/11/20 20:59 Last Admin: 09/11/20 20:03 Dose: 800 mcg Documented by: Hydromorphone HCl (Hydromorphone Inj 0.5 Mg/0.5 Ml Syr) 0.5 mg IV Q4H PRN PRN Reason: Pain or Pre PT Stop: 09/25/20 16:42 Isosorbide Mononitrate (Isosorbide [place] Extended Rel 30 Mg Tabcr) [facility]: 10/12/20 08:59 Lansoprazole (Lansoprazole 30 Mg Soltab) [facility] Stop: 10/12/20 06:29 Last Admin: 09/12/20 07:01 Dose: 30 mg Documented by: Magnesium Hydroxide (Magnesium Hydroxide Susp 30 Ml Udc) 30 ml PO Q6H PRN PRN Reason: Constipation Stop: 10/11/20 16:42 Metoclopramide HCl (Metoclopramide Hcl Inj 5 Mg/Ml 2 Ml Vial) 10 mg IV Q6H PRN PRN Reason: Nausea And Vomiting Stop: 10/11/20 16:42 Metoprolol Succinate (Metoprolol Succ 25mg Ext Rel Tab) 25 mg PO QPM PENDING SALE TO [facility] Stop: 10/11/20 20:59 Last Admin: 09/11/20 20:02 Dose: 25 mg Documented by: Multivitamins (Multivitamin Tab) 1 tab PO [facility] Stop: 10/12/20 08:59 Naloxone HCl (Naloxone Hcl 0.4 Mg/1 Ml Vial/Carp) 0.1 mg IV Q5M PRN PRN Reason: Oversedation/Resp Depression Stop: 10/11/20 16:42 Ondansetron HCl (Ondansetron Inj 2 Mg/Ml 2 Ml Vial) 4 mg IV Q6H PRN PRN Reason: Nausea And Vomiting Stop: 10/11/20 16:42 Oxycodone HCl (Oxycodone Hcl Ir 5 Mg Tab (Immediate Release)) 5 - 10 mg PO Q4H PRN PRN Reason: Pain or Pre PT Stop: 09/25/20 16:42 Polysaccharide Iron Complex (Iron Polysaccharide Complex 150 Mg Capsule) 150 mg PO [facility] Stop: 10/12/20 08:59 Sennosides (Senna 8.6 Mg Tab) 17.2 mg PO HS JEFF Stop: 10/11/20 20:59 Last Admin: 09/11/20 20:02 Dose: 17.2 mg Documented by: PG Care Time/CCT Total # of Minutes Spent Total Time Spent with Patient: Total time spent is greater than 50% in coordination of care (as documented) at patient's floor/unit and/or counseling patient: Coding Level of Care Code 55695 Subseq Hosp Care Lvl 2 Diagnoses CAD (coronary artery disease) I25.10 Primary osteoarthritis, left shoulder M19.012 HTN (hypertension) I10 HLD (hyperlipidemia) E78.5 Duodenal ulcer K26.9 DVT prophylaxis Z29.9 BPH (benign prostatic hyperplasia) N40.0 Psoriatic arthritis L40.50
[2020-09-12] MEDS: FOLIC ACID 400 MCG TAB PO SCH (10:30)
[2020-09-12] MEDS: DOCUSATE SODIUM 100 MG CAP PO SCH (10:31)
--- NOTE | 2020-09-12 19:38 | Discharge Summary ---
Date of Service September 12, 2020 Admission HPI Per Admitting Provider 85 year old male with PMHx significant for CAD, HTN, high cholesterol, GERD, BPD, BCC who presents with longstanding left shoulder pain. He has significant arthritic change to his left shoulder. Previously has undergone right total shoulder replacement and has done well. He has failed conservative measures and would like to proceed with left shoulder replacement. Patient denies headaches, sweats, fevers, chills, double vision, blurred vision, cough, sore throat, dysphagia, chest pain, sob, wheezing, n/v/d/c, numbness, tingling, fatigue, urinary symptoms, mood disorders. ROS positive for left shoulder pain and st iffness. Admission Exam Per Admitting Provider Constitutional: well developed and well nourished; no acute distress Eyes: PERRL, conjunctivae normal, anicteric sclerae ENMT: external ear and nose normal, oropharynx normal Neck: trachea midline, no thyromegaly Respiratory: normal respiratory effort, lungs clear to auscultation Cardiovascular: RRR, no murmur, no edema Musculoskeletal: Left shoulder: Active painful ROM with crepitation. ROM to 30 degrees of ER, FF to 80 degrees, abduction to 60 degrees. Tenderness anterior glenoid and diffusely. Positive impingement signs. Strength-4+/5 ER and abduction, 5/5 IR Skin: no rashes, warm and dry Neurologic: patellar DTR's 2+ bilat, sensation intact Psychiatric: A+Ox3, euthymic affect Principal Diagnosis Left shoulder osteoarthritis Discharge Exam Dressing and drain intact, wrist drop noted with decreased wrist/finger extension Constitutional well developed and well nourished; no acute distress Eyes PERRL, conjunctivae normal, anicteric sclerae ENMT external ear and nose normal, oropharynx normal Neck trachea midline, no thyromegaly Respiratory normal respiratory effort, lungs clear to auscultation Cardiovascular RRR, no murmur, no edema Skin no rashes, warm and dry Neurologic patellar DTR's 2+ bilat, sensation intact Psychiatric A+Ox3, euthymic affect Discharge Data Allergies Allergy/AdvReac Type Severity Reaction Status Date / Time Antihistamines - Alkylamine Allergy Unknown Hives Verified 09/11/20 10:39 Sulfa (Sulfonamide Allergy Unknown Hives Verified 09/11/20 10:39 Antibiotics) Consultations 09/08/20 13:13 Consult Hospitalist Routine Procedures Performed Operation Date: 09/11/20 11:40 Actual Procedures p Left Total Shoulder Arthroplasty and Biceps Tenodesis(Left) - Chapincito Euceda MD Ordered Studies 09/11/20 05:00 US - OR guided needle placemen Routine Hospital Course (1) Primary osteoarthritis, left shoulder: Patient presented for same day admission following left total shoulder arthroplasty on 09/11/20. He tolerated procedure well. The Patient had an uneventful hospital course. Post-operatively, his activity was progressed and well tolerated. They participated in PT without complication. Labs remained stable- lowest hemoglobin recorded:11.3. [facility] [place] was [place] for medical management during admission. Pain controlled on oral medications. Please refer to daily progress notes and PT notes for complete details. After exam on 09/12/20, patient was felt to be stable for discharge home with plans on attending outpatient PT. Patient will f/u in the office in about 2 weeks for further evaluation including x-rays and incision check, sooner if having any issues or concerns. Lab Results 09/03/20 09/03/20 09/03/20 Range/Units 12:02 12:02 12:02 WBC 3.73 L (4.8-10.8) K/uL RBC 4.45 L (4.7-6.1) M/uL Hgb 13.9 L (14.0-18.0) g/dL Hct 41.5 L (42-52) % MCV 93.3 (80-100) fL MCH 31.2 (25-34) pg MCHC 33.5 (32-36) g/dL RDW Std Deviation 54.0 H (36.4-46.3) fL RDW Coeff of Michaela 15.8 H (11.5-14.5) % Plt Count 135 (130-400) K/uL MPV 10.2 (7.4-10.4) fL Immature Gran % (Auto) 0.3 % Neut % (Auto) 52.2 % Lymph % (Auto) 33.2 % [place] % (Auto) 9.7 % Eos % (Auto) 3.8 % Baso % (Auto) 0.8 % Neut # (Auto) 1.95 (1.4-6.5) K/uL Lymph # (Auto) 1.24 (1.2-3.4) K/uL P[place] # (Auto) 0.36 (0.11-0.59) K/uL Eos # (Auto) 0.14 (0-0.5) K/uL Baso # (Auto) 0.03 (0-0.2) K/uL Immature Gran # (Auto) 0.01 (0.00-0.02) K/uL PT 10.9 (9.0-12.0) Seconds INR 1.1 (0.9-1.1) APTT 26.2 (21.0-31.0) Seconds PTT Ratio 1.0 Sodium (136-145) mmol/L Potassium (3.5-5.1) mmol/L Chloride (98-107) mmol/L Carbon Dioxide (21-32) mmol/L Anion Gap (3-11) BUN (7-18) mg/dl Creatinine (0.6-1.4) mg/dl Est Cr Clr Drug Dosing ml/min Est GFR ( Amer) Est GFR (Non-Af Amer) BUN/Creatinine Ratio (10-20) Glucose (70-99) mg/dl Estimat Average Glucose mg/dl Hemoglobin A1c (4.5-5.6) % Calcium (8.5-10.1) mg/dl Albumin (3.4-5.0) gm/dl Urine Color Urine Appearance (Clear) Urine pH (4.5-7.5) Ur Specific [place] (1.000-1.030) Urine Protein (Negative) Urine Glucose (UA) (Negative) Urine Ketones (Negative) Urine Blood (Negative) Urine Nitrite (Negative) Urine Bilirubin (Negative) Urine Urobilinogen (Negative) Ur Leukocyte Esterase (Negative) Blood Type O Positive Antibody Screen NEGATIVE 09/03/20 09/03/20 09/03/20 Range/Units 12:02 12:02 12:02 WBC (4.8-10.8) K/uL RBC (4.7-6.1) M/uL Hgb (14.0-18.0) g/dL Hct (42-52) % MCV (80-100) fL MCH (25-34) pg MCHC (32-36) g/dL RDW Std Deviation (36.4-46.3) fL RDW Coeff of Michaela (11.5-14.5) % Plt Count (130-400) K/uL MPV (7.4-10.4) fL Immature Gran % (Auto) % Neut % (Auto) % Lymph % (Auto) % P[place] % (Auto) % Eos % (Auto) % Baso % (Auto) % Neut # (Auto) (1.4-6.5) K/uL Lymph # (Auto) (1.2-3.4) K/uL Pinal # (Auto) (0.11-0.59) K/uL Eos # (Auto) (0-0.5) K/uL Baso # (Auto) (0-0.2) K/uL Immature Gran # (Auto) (0.00-0.02) K/uL PT (9.0-12.0) Seconds INR (0.9-1.1) APTT (21.0-31.0) Seconds PTT Ratio Sodium 143 (136-145) mmol/L Potassium 4.3 (3.5-5.1) mmol/L Chloride 110 H (98-107) mmol/L Carbon Dioxide 27 (21-32) mmol/L Anion Gap 6.0 (3-11) BUN 19 H (7-18) mg/dl Creatinine 0.97 (0.6-1.4) mg/dl Est Cr Clr Drug Dosing 72.7 ml/min Est GFR ( Amer) 83.3 Est GFR (Non-Af Amer) 71.9 BUN/Creatinine Ratio 19.7 (10-20) Glucose 105 H (70-99) mg/dl Estimat Average Glucose 123 mg/dl Hemoglobin A1c 5.9 H (4.5-5.6) % Calcium 8.5 (8.5-10.1) mg/dl Albumin 3.3 L (3.4-5.0) gm/dl Urine Color Yellow Urine Appearance Clear (Clear) Urine pH 7.0 (4.5-7.5) Ur Specific [place] 1.014 (1.000-1.030) Urine Protein Negative (Negative) Urine Glucose (UA) Negative (Negative) Urine Ketones Negative (Negative) Urine Blood Negative (Negative) Urine Nitrite Negative (Negative) Urine Bilirubin Negative (Negative) Urine Urobilinogen Negative (Negative) Ur Leukocyte Esterase Negative (Negative) Blood Type Antibody Screen 09/12/20 09/12/20 Range/Units 05:35 05:35 WBC 8.50 (4.8-10.8) K/uL RBC 3.66 L (4.7-6.1) M/uL Hgb 11.3 L (14.0-18.0) g/dL Hct 34.5 L (42-52) % MCV 94.3 (80-100) fL MCH 30.9 (25-34) pg MCHC 32.8 (32-36) g/dL RDW Std Deviation 56.0 H (36.4-46.3) fL RDW Coeff of Michaela 16.2 H (11.5-14.5) % Plt Count 117 L (130-400) K/uL MPV 10.2 (7.4-10.4) fL Immature Gran % (Auto) 0.4 % Neut % (Auto) 77.9 % Lymph % (Auto) 10.5 % P[place] % (Auto) 11.1 % Eos % (Auto) 0.0 % Baso % (Auto) 0.1 % Neut # (Auto) 6.63 H (1.4-6.5) K/uL Lymph # (Auto) 0.89 L (1.2-3.4) K/uL [place] # (Auto) 0.94 H (0.11-0.59) K/uL Eos # (Auto) 0.00 (0-0.5) K/uL Baso # (Auto) 0.01 (0-0.2) K/uL Immature Gran # (Auto) 0.03 H (0.00-0.02) K/uL PT (9.0-12.0) Seconds INR (0.9-1.1) APTT (21.0-31.0) Seconds PTT Ratio Sodium 142 (136-145) mmol/L Potassium 4.2 (3.5-5.1) mmol/L Chloride 110 H (98-107) mmol/L Carbon Dioxide 26 (21-32) mmol/L Anion Gap 6.0 (3-11) BUN 18 (7-18) mg/dl Creatinine 0.93 (0.6-1.4) mg/dl Est Cr Clr Drug Dosing 75.8 ml/min Est GFR ( Amer) 87.7 Est GFR (Non-Af Amer) 75.7 BUN/Creatinine Ratio 19.8 (10-20) Glucose 133 H (70-99) mg/dl Estimat Average Glucose mg/dl Hemoglobin A1c (4.5-5.6) % Calcium 7.5 L (8.5-10.1) mg/dl Albumin (3.4-5.0) gm/dl Urine Color Urine Appearance (Clear) Urine pH (4.5-7.5) Ur Specific [place] (1.000-1.030) Urine Protein (Negative) Urine Glucose (UA) (Negative) Urine Ketones (Negative) Urine Blood (Negative) Urine Nitrite (Negative) Urine Bilirubin (Negative) Urine Urobilinogen (Negative) Ur Leukocyte Esterase (Negative) Blood Type Antibody Screen Total Time Total Time Spent Total Time Spent (In Minutes): 20 Discharge Plan Discharge Items Patient Disposition: Home - Self-Care Reason For Visit: Left Shoulder Osteoarthritis Discharge Diagnosis: Left shoulder replacement Activity: Per Instructions section Non-emergency contact: Surgeon Call non-emergency contact if: your pain is not controlled, your temperature is above 101.5, your wound has increased redness and your wound has increased drainage Follow-up/Referrals: Sharad Rodriguez D.O. [Primary Care Provider] - Diet: Heart Healthy Addtl Attending Provider Instructions: ACTIVITY RECOMMENDATIONS: SELF CARE INSTRUCTIONS AFTER TOTAL SHOULDER ARTHROPLASTY A. You may do daily exercises as taught in physical therapy while in hospital. No lifting with the operative arm. Please schedule your outpatient physical therapy appointment to begin within 2-3 days after leaving the hospital. Specific restrictions will be written on your physical therapy prescription that is provided to you. B. You are to wear your sling/immobilizer at all times EXCEPT when performing your daily exercises, participating in physical therapy and for hygiene purposes. C. You may perform dry, daily dressing changes. Please keep your incision co slava. You may shower 48 hours after surgery. Do not apply soap or any ointment/lotions directly over incision. Do not soak incision in bath tub/swimming pool. D. You may use ice as needed to operative shoulder. SPECIAL CARE INSTRUCTIONS: MEDICATION INSTRUCTIONS: *It is recommended you take Aspirin 325mg daily for four weeks post-op. VERY IMPORTANT TO READ AND REVIEW A. There are a few signs you need to watch for after you are home. Call [facility] at [phone] if you experience any of the followin. Increased severe shoulder pain. Some pain is expected especially when you exercise. 2. Increased swelling in you shoulder or arm; pain or swelling in either upper extremity. 3. Any fluid drainage from the incision. 4. Shortness of breath or chest pain. B. Please call [facility] at [phone] if you have any questions or concerns about your operation or recovery. C. Call your physician if: 1. Temperature is greater than 101 degrees (F). 2. Pain is not relieved by prescribed pain medications. 3. Increase drainage or redness from incision. 4. Unanswered questions or concerns. FOLLOW UP VISIT: Please call [facility] at [phone] to schedule a follow up appointment with Dr. Euceda or his PA in 12-14 days from your surgery date. Pending Studies at Discharge: No Stand-Alone Forms: My [facility] [employer], Opioid Pain Management, Work/School Release (Inpt), Smoking Cessation Medications and DC Order Prescriptions: New acetaminophen 500 mg Tablet 1,000 mg PO Q8 Qty: 0 RF: 0 oxycodone 5 mg tablet 5 mg PO Q6H PRN (Reason: pain) Qty: 12 RF: 0 oxycodone 5 mg tablet 5 - 10 mg PO Q6H PRN (Reason: pain) Qty: 18 RF: 0 Continued atorvastatin 40 mg Tablet 40 mg PO QPM RF: 0 isosorbide mononitrate 30 mg Tablet Extended Release 24 Hr 30 mg PO QAM RF: 0 folic acid 400 mcg Tablet 0.8 mg PO BID RF: 0 aspirin [Aspir-81] 81 mg Tablet,Delayed Release (Dr/Ec) 81 mg PO QAM RF: 0 metoprolol succinate 25 mg Tablet Extended Release 24 Hr 25 mg PO QPM RF: 0 Multivitamin 50 Plus Tablet 1 tab PO QAM RF: 0 lansoprazole [Prevacid] 30 mg Capsule,Delayed Release(Dr/Ec) 30 mg PO DAILYBB RF: 0 Citrucel 1 tsp PO TIDM RF: 0 polysaccharide iron complex [Ferrex 150] 150 mg iron Capsule 150 mg PO QAM RF: 0 albuterol sulfate 90 mcg/actuation Hfa Aerosol Inhaler 1 inh INHALATION QID PRN (Reason: sob) RF: 0 coenzyme Q10 [CoQ-10] 100 mg Capsule 100 mg PO QAM RF: 0 Discontinued methotrexate sodium 2.5 mg Tablet 12.5 mg PO WK RF: 0 Discharge Orders: Discharge Order (Routine); Ordered 09/12/20 Ordered By: Viet Thomas/Other Patient Handouts: DVT Post Op Prevention, Total Shoulder Replacement Surgery, Shoulder Replace Surg Home, Shoulder Replacement Surg Recovery Admission Data Admit Date/Time: 09/11/20 16:11 Attending Provider: Chapincito Euceda Admit Provider: Chapincito Euceda Primary Care Provider: Sharad Rodriguez. Other Providers: Rigo Hinds Other Interventions: Discharge Summary Assessment (RN) Last Done: 09/12/20 11:33
== END 2020-09-12 13:00 | disposition home or self-care (01) ==
LOC: PAT 10:16 → INTOOBSV 16:11 → 3E 16:11